=== PATIENT | male | born 1990 | race Caucasian/White ===

== ENCOUNTER 2017-12-14 10:57 | Emergency (ER) | payer MEDICAID, OTHER ==
[~2017-12-14] VITALS: Ht 180.3 cm; Wt 74.8 kg
--- OUTSIDE RECORDS SUMMARY | 2017-12-14 11:03 | XMS REPORT ---
Author Author DEVEN COLLINS Organization [facility] Address [address] [place] [address] Phone Unavailable Care Team Providers Care Insecticide Mixer Name Role Phone DEVEN COLLINS Unavailable Unavailable PROBLEMS Unknown Problems ALLERGIES No Known Allergies ENCOUNTERS Encounter Location Date Diagnosis [facility] [address] [id number] [phone] Mar, Dental examination Z01.20 [facility] [id number] [place] [phone] Mar, Dental examination V72.2 [facility] [address] [id number] [phone] Jan, Dental examination V72.2 [facility] [id number] [place] [phone] Jan, Dental examination V72.2 [facility] [address] [id number] [phone] December, Dental examination V72.2 IMMUNIZATIONS No Known Immunizations SOCIAL HISTORY Never Assessed REASON FOR VISIT prophy PLAN OF CARE Activity Details Follow Up olayinka Reason:restore VITAL SIGNS Blood pressure systolic 123 mmHg 2017-04-02 Blood pressure diastolic 69 mmHg 2017-04-02 MEDICATIONS No Known Medications RESULTS No Results PROCEDURES Procedure Date Ordered Result Body Site PERIODIC ORAL EXAMINATION Apr 02, 2017 INTRAORL-PERIAPICAL 1 FILM [id number] Apr 02, 2017 TOPICAL FLUORIDE VARNISH Apr 02, 2017 INTRAORL-PERIAPICAL EA ADD FILM Apr 02, 2017 INTRAORL-PERIAPICAL EA ADD FILM Apr 02, 2017 PROPHYLAXIS - ADULT Apr 02, 2017 BITEWINGS - FOUR FILMS Apr 02, 2017 INSTRUCTIONS MEDICATIONS ADMINISTERED No Known Medications
--- OUTSIDE RECORDS SUMMARY | 2017-12-14 11:03 | XMS REPORT ---
Author Author SHARLENE ELISE [facility] eClinicalWorks Address Unknown Phone Unavailable Care Team Providers Care Psychiatric Mental Health Nurse Name Role Phone SHARLENE ELISE CP Unavailable Allergies No Known Allergies Problems Problem Type Condition ICD-9 Code Onset Dates Condition Status Assessment Dental examination V72.2 Active Medications No Known Medications Procedures Procedure Coding System Code Date PROPHYLAXIS - ADULT CPT-4 D1110 Apr 06, 2015 TOPICAL FLUORIDE VARNISH CPT-4 D1206 Apr 06, 2015 PERIODIC ORAL EXAMINATION CPT-4 D0120 Apr 06, 2015 Results No Known Results Summary Purpose eClinicalWorks Submission
--- OUTSIDE RECORDS SUMMARY | 2017-12-14 11:03 | XMS REPORT ---
Author Author DAPHNE PEMBERTON [facility] eClinicalWorks Address Unknown Phone Unavailable Care Team Providers Care Public Information Officer Name Role Phone DAPHNE PEMBERTON CP Unavailable Allergies No Known Allergies Problems Problem Type Condition ICD-9 Code Onset Dates Condition Status Assessment Dental examination V72.2 Active Medications No Known Medications Procedures Procedure Coding System Code Date Billing Notes on claim CPT-4 EC109 January 12, 2015 Results No Known Results Summary Purpose eClinicalWorks Submission
[2017-12-14] MEDS ORDERED: fentaNYL INJECTION 100 MCG/2 ML AMP IVP STA (11:15)
[2017-12-14] MEDS ORDERED: LACTATED RINGERS 1,000 ML IV ONE (11:15)
[2017-12-14 11:29] LABS: BASOPHILS % (AUTO) 0 % (0-10); EOSINOPHILS # (AUTO) 0.2 10^3/uL (0.0-0.3); EOSINOPHILS % (AUTO) 3 % (0-10); HEMATOCRIT 42 % (40-54); HEMOGLOBIN 14.4 G/DL (13.3-17.7); LYMPHOCYTES # (AUTO) 1.2 X 10^3 (1.0-4.0); LYMPHOCYTES % (AUTO) 21 % (12-44); MEAN CORPUSCULAR HEMOGLOBIN 30 PG (25-34); MEAN CORPUSCULAR HGB CONC 34 G/DL (32-36); MEAN CORPUSCULAR VOLUME 86 FL (80-99); MEAN PLATELET VOLUME 10.9 FL (7.4-10.4); MONOCYTES # (AUTO) 0.7 X 10^3 (0.0-1.0); MONOCYTES % (AUTO) 11 % (0-12); NEUTROPHILS # (AUTO) 3.9 X 10^3 (1.8-7.8); NEUTROPHILS % (AUTO) 65 % (42-75); PLATELET COUNT 209 10^3/uL (130-400); RED BLOOD COUNT 4.88 10^6/uL (4.35-5.85); RED CELL DISTRIBUTION WIDTH 12.8 % (10.0-14.5)
--- NOTE | 2017-12-14 11:31 | ED Fall/Injury ---
General Chief Complaint: Trauma-Non Activation Stated Complaint: R LEG POSS BROKEN AFTER FALL Nursing Triage Note: PT PRESENTS TO ER WITH COMPLAINT OF RIGHT LEG/ANKLE PAIN AFTER FALLING 4 FEET OFF A LADDER. Source: patient History of Present Illness Date Seen by Provider: Dec 14, 2017 Time Seen by Provider: 11:12 Initial Comments PT ARRIVES VIA POV FROM HOME--WENT TO [facility] FIRST, AND WAS TOLD TO COME HERE--NO CALL FROM THEM. PT FELL APPROXIMATELY 4 FEET OFF A 6" LADDER--WAS OUTSIDE PUTTING UP SIDING, AND LANDED ON GRAVEL LANDED ON RIGHT FOOT, AND IT BUCKLED AND THEN HE LANDED ON HIS BACK DID NOT HIT HEAD AND NO LOSS OF CONSCIOUSNESS NO NECK OR BACK PAIN NO PARESTHESIAS OR MOTOR DEFICITS C/O RIGHT ANKLE/LOWER LEG PAIN DENIES ANY PAIN OR OTHER INJURIES ATE BREAKFAST AT 0900 NO PCP Allergies and Home Medications Allergies Coded Allergies: No Known Drug Allergies (Unverified , 12/14/17) Home Medications Hydrocodone/Acetaminophen 1 Each Tablet, 1 EACH PO Q4H Prescribed by: JEANCARLOS SWAIN on 12/14/17 1230 Ibuprofen 200 Mg Tablet, 200 MG PO PRN PRN for PAIN-MILD, (Reported) Patient Home Medication List Home Medication List Reviewed: Yes Review of Systems Constitutional: no symptoms reported Eyes: No Symptoms Reported Ears, Nose, Mouth, Throat: no symptoms reported Respiratory: no symptoms reported; No short of breath Cardiovascular: no symptoms reported; No chest pain Gastrointestinal: no symptoms reported Genitourinary: no symptoms reported Musculoskeletal: see HPI; No back pain, No neck pain; other (PER HPI) Skin: no symptoms reported Psychiatric/Neurological: No Symptoms Reported Past Sucarou-Luaiyg-Yjkoyj Hx Patient Social History Alcohol Use: Denies Use Recreational Drug Use: Yes Drug of Choice: MARIJUANA Smoking Status: Never a Smoker Recent Foreign Travel: No Contact w/Someone Who Travel: No Recent Infectious Disease Expo: No Recent Hopitalizations: No Immunizations Up To Date PED Vaccines UTD: Yes Seasonal Allergies Seasonal Allergies: No Past Medical History Surgeries: Yes (FINGER FRACTURE/REPAIR) Orthopedic Respiratory: No Cardiac: No Neurological: No Genitourinary: No Gastrointestinal: No Musculoskeletal: Yes (FINGER FRACTURE) Fractures Endocrine: No HEENT: No Cancer: No Psychosocial: No Integumentary: No Blood Disorders: No Physical Exam Vital Signs Vital Signs - First Documented Capillary Refill : Less Than 3 Seconds General Appearance: no apparent distress, thin HEENT: PERRL/EOMI, normal ENT inspection, TMs normal, pharynx normal Neck: non-tender, full range of motion, supple, normal inspection Cardiovascular: normal peripheral pulses, regular rate, rhythm, no JVD, no murmur Respiratory: chest non-tender, normal breath sounds, no respiratory distress, no accessory muscle use Gastrointestinal: normal bowel sounds, non tender, soft Back: normal inspection, no CVA tenderness, no vertebral tenderness Extremities: normal capillary refill, other (DEFORMITY AND SWELLING TO DISTAL TIB-FIB /ANKLE AREA ON RIGHT. DISTAL MOTOR/SENSORY/VASCULAR INTACT. NO OTHER EXTREMITY TRAUMA) Neurologic/Psychiatric: supervisor inspection II-XII nml as tested, no motor/sensory deficits, alert, normal mood/affect, oriented x 3 Skin: normal color, warm/dry Sotero Coma Score Best Eye Response: (4) Open Spontaneously Best Verbal Response: (5) Oriented Best Motor Response: (6) Obeys Commands [place] Total: 15 Procedures/Interventions Splinting and Joint Reduction : Garth wrap: Yes (ALONG WITH STOCKINETTE AND HEAVY CAST PADDING, THEN WRAPPED WITH GARTH WRAP. ) Immobilizers: Step Light Walker s/m/lg Ordered: Crutches Progress/Results/Core Measures Lab Results Laboratory Tests Test 12/14/17 11:20 Range/Units White Blood Count 6.0 4.3-11.0 10^3/uL Red Blood Count 4.88 4.35-5.85 10^6/uL Hemoglobin 14.4 13.3-17.7 G/DL Hematocrit 42 40-54 % Mean Corpuscular Volume 86 80-99 FL Mean Corpuscular Hemoglobin 30 25-34 PG Mean Corpuscular Hemoglobin Concent 34 32-36 G/DL Red Cell Distribution Width 12.8 10.0-14.5 % Platelet Count 209 130-400 10^3/uL Mean Platelet Volume 10.9 H 7.4-10.4 FL Neutrophils (%) (Auto) 65 42-75 % Lymphocytes (%) (Auto) 21 12-44 % Monocytes (%) (Auto) 11 0-12 % Eosinophils (%) (Auto) 3 0-10 % Basophils (%) (Auto) 0 0-10 % Neutrophils # (Auto) 3.9 1.8-7.8 X 10^3 Lymphocytes # (Auto) 1.2 1.0-4.0 X 10^3 Monocytes # (Auto) 0.7 0.0-1.0 X 10^3 Eosinophils # (Auto) 0.2 0.0-0.3 10^3/uL Basophils # (Auto) 0.0 0.0-0.1 10^3/uL Prothrombin Time 14.9 H 12.2-14.7 SEC INR Comment 1.2 0.8-1.4 Activated Partial Thromboplast Time 26 24-35 SEC Sodium Level 139 135-145 MMOL/L Potassium Level 3.9 3.6-5.0 MMOL/L Chloride Level 106 98-107 MMOL/L Carbon Dioxide Level 26 21-32 MMOL/L Anion Gap 7 5-14 MMOL/L Blood Urea Nitrogen 13 7-18 MG/DL Creatinine 0.93 0.60-1.30 MG/DL Estimat Glomerular Filtration Rate > 60 BUN/Creatinine Ratio 14 Glucose Level 95 70-105 MG/DL Calcium Level 9.4 8.5-10.1 MG/DL Total Bilirubin 0.5 0.1-1.0 MG/DL Aspartate Amino Transf (AST/SGOT) 20 5-34 U/L Alanine Aminotransferase (ALT/SGPT) 17 0-55 U/L Alkaline Phosphatase 43 40-136 U/L Total Protein 7.3 6.4-8.2 GM/DL Albumin 4.6 H 3.2-4.5 GM/DL My Orders Orders - JEANCARLOS SWAIN K DO Saline Lock/Iv-Start (12/14/17 11:15) Cbc With Automated Diff (12/14/17 11:15) Comprehensive Metabolic Panel (12/14/17 11:15) Protime With Inr (12/14/17 11:15) Partial Thromboplastin Time (12/14/17 11:15) Chest 1 View, Ap/Pa Only (12/14/17 11:15) Tibia/Fibula, Right, 2 Views (12/14/17 11:15) Foot, Right, 3 View (12/14/17 11:15) Ankle, Right, 3 Views (12/14/17 11:15) Pelvis (12/14/17 11:15) Saline Lock/Iv-Start (12/14/17 11:15) Lactated Ringers (Lr 1000 Ml Iv Solution (12/14/17 11:15) Fentanyl Injection (Sublimaze Injection (12/14/17 11:15) Morphine Injection (Morphine Injection (12/14/17 12:08) Garth Bandage (12/14/17 12:25) Crutches (12/14/17 12:25) Steplite (12/14/17 12:25) Morphine Injection (Morphine Injection (12/14/17 12:25) Morphine Injection (Morphine Injection (12/14/17 13:25) Medications Given in ED Current Medications Medications Dose Ordered Sig/Tyler Route Start Time Stop Time Status Last Admin Dose Admin Lactated Ringer's 1,000 ml @ 0 mls/hr Q0M ONCE IV 12/14/17 11:15 12/14/17 11:17 DC 12/14/17 11:26 1,000 MLS/HR Vital Signs/I&O 12/14/17 12/14/17 12/14/17 11:02 11:02 13:19 Temp 99.0 99.0 Pulse 60 60 62 Resp 20 20 18 B/P (MAP) 130/82 (98) 130/82 (98) 126/75 Pulse Ox 99 99 98 O2 Delivery Room Air Room Air Blood Pressure Mean: 98 Comments XRAYS --ALL PER RADIOLOGIST REPORTS @ 1200 PELVIS--NO ACUTE PROCESS CXR--NO ACUTE PROCESS RIGHT FOOT--NO ACUTE PROCESS RIGHT ANKLE--COMMINUTED SPIRAL FRACTURE DISTAL TIBIA RIGHT TIB-FIB--COMMINUTED FRACTURES OF PROXIMAL FIBULA AND DISTAL TIBIA Reviewed: Reviewed by Me Departure Communication (Admissions) 1150--SPOKE WITH DR. FLYNN, WANTS PICS OF XRAYS TEXTED TO HIM. SOURCER CONTACTED. 1156--XRAYS TEXTED TO HIM BY SOURCER 1216--DR. FLYNN CALLED BACK, HE ADVISES TO PLACE PT IN A CAM WALKER, CRUTCHES /NON-WEIGHT BEARING, FOLLOW UP SATURDAY MORNING AT 10:[address] Sanjuana PLASCENCIA, AND BE NPO. Impression Primary Impression: Closed fracture of right distal tibia Additional Impressions: Closed fracture of proximal end of right fibula S/P FALL FROM LADDER Disposition: 01 HOME, SELF-CARE Condition: Stable Departure-Patient Inst. Referrals: PAU FLYNN MD,GABI JIMENEZ,LOCAL PHYSICIAN (PCP) Primary Care Physician Patient Instructions: Fibula Fracture (DC), Going Up and Down Curbs or Stairs With a Walker or Crutches, How to Use Crutches, Tibia Fracture (DC) Add. Discharge Instructions: ICE TO AREA AT 20 MINUTE INTERVALS ELEVATE FOOT MUCH POSSIBLE GARTH WRAP, BOOT AND CRUTCHES AT ALL TIMES--NO WEIGHT BEARING FOLLOW UP WITH DR. PLASCENCIA AT [address] ON Saturday AT 10:00 AM-- NOTHING TO EAT OR DRINK FROM MIDNIGHT THE NIGHT BEFORE CALL DR. FLYNN OVER THE WEEKEND IF YOU HAVE ANY PROBLEMS All discharge instructions reviewed with patient and/or family. Voiced understanding. Scripts Hydrocodone/Acetaminophen (Hydrocodon-Acetaminophn 10-325) 1 Each Tablet 1 EACH PO Q4H, #20 TAB Prov: JEANCARLOS SWAIN DO 12/14/17 Work/School Note: Work Release Form Date Seen in the Emergency Department: Dec 14, 2017 Restrictions: Need Release from Doctor JEANCARLOS SWAIN DO Dec 14, 2017 11:31
[2017-12-14 11:40] LABS: INR 1.2 (0.8-1.4); PROTHROMBIN TIME PATIENT 14.9 SEC (12.2-14.7)
[2017-12-14] MEDS ORDERED: IBUP-2055 PO (11:40)
[2017-12-14 11:47] LABS: ALANINE AMINOTRANSFERASE 17 U/L (0-55); ALBUMIN 4.6 GM/DL (3.2-4.5); ALKALINE PHOSPHATASE 43 U/L (40-136); BILIRUBIN,TOTAL 0.5 MG/DL (0.1-1.0); BUN/CREATININE RATIO 14; CALCIUM 9.4 MG/DL (8.5-10.1); CARBON DIOXIDE 26 MMOL/L (21-32); CHLORIDE 106 MMOL/L (98-107); CREATININE SERUM 0.93 MG/DL (0.60-1.30); GFR ESTIMATED > 60; GLUCOSE 95 MG/DL (70-105); POTASSIUM 3.9 MMOL/L (3.6-5.0); SODIUM 139 MMOL/L (135-145); TOTAL PROTEIN 7.3 GM/DL (6.4-8.2)
--- NOTE | 2017-12-14 11:52 | Diagnostic Imaging Report ---
INDICATION: Fall COMPARISON: None FINDINGS: Single view of the pelvis demonstrates no fracture or dislocation. Articular surfaces are normal. IMPRESSION: Negative pelvis Dictated by: Dictated on workstation # [id number]
--- NOTE | 2017-12-14 11:54 | Diagnostic Imaging Report ---
INDICATION: Right foot pain COMPARISON: None FINDINGS: 3 views of the right foot demonstrate no fracture or dislocation. Articular surfaces are normal. No foreign body. IMPRESSION: Negative right foot Dictated by: Dictated on workstation # [id number]
--- NOTE | 2017-12-14 11:54 | Diagnostic Imaging Report ---
INDICATION: Right tibia/fibula injury, pain, swelling. COMPARISON: None. FINDINGS: Multiple views of the right tibia/fibula demonstrate a comminuted spiral fracture of the distal tibia. There is minimal displacement. There is a comminuted proximal fracture of the fibula. No significant displacement. Articular surfaces are normal. IMPRESSION: Proximal fibula, distal tibia fractures. Dictated by: Dictated on workstation # [id number]
--- NOTE | 2017-12-14 11:55 | Diagnostic Imaging Report ---
INDICATION: Right ankle injury, fall COMPARISON: None FINDINGS: 3 views of the right ankle demonstrate spiral fracture of the distal tibia. The visualized fibula is intact. Ankle mortise is intact. There is no foreign body. IMPRESSION: Intact ankle mortise. Dictated by: Dictated on workstation # [id number]
--- NOTE | 2017-12-14 11:56 | Diagnostic Imaging Report ---
INDICATION: Fall COMPARISON: None FINDINGS: Single view of the chest demonstrates clear lungs bilaterally. The heart is normal. There is no pneumothorax. Osseous structures normal. IMPRESSION: Negative chest Dictated by: Dictated on workstation # [id number]
[2017-12-14] MEDS ORDERED: morphine INJ 10 MG/ML 1ML (SYR OR VIAL) IVP STA ×3 (12:08→13:25)
[2017-12-14] MEDS ORDERED: HYDR-3820 PO (12:30)
[2017-12-14 13:19] VITALS: BP 126/75
== END 2017-12-14 13:19 | disposition home or self-care (01) ==
LOC: ER 11:00
DX: S82.301A Unspecified fracture of lower end of right tibia, initial encounter for closed fracture (principal); S82.831A Other fracture of upper and lower end of right fibula, initial encounter for closed fracture; R40.2142 Coma scale, eyes open, spontaneous, at arrival to emergency department; R40.2252 Coma scale, best verbal response, oriented, at arrival to emergency department; R40.2362 Coma scale, best motor response, obeys commands, at arrival to emergency department; F12.90 Cannabis use, unspecified, uncomplicated; Z87.81 Personal history of (healed) traumatic fracture; W11.XXXA Fall on and from ladder, initial encounter
CPT/HCPCS: 36415; 71045; 72170; 73590; 73610; 73630; 80053; 85025; 85610; 85730; 96361; 96374; 96375

== ENCOUNTER 2019-04-27 08:08 | Inpatient (IN) | payer MEDICAID ==
[~2019-04-27] VITALS: Ht 177.8 cm; Wt 71.8 kg
[~2019-04-27 08:08] MED LIST: HYDR-3820 PO; IBUP-2055 PO
[2019-04-27] MEDS ORDERED: HYDROcodone/APAP 10 MG/325 MG (LORTAB) TAB PO ONE (08:45)
[2019-04-27] MEDS ORDERED: morphine INJ 10 MG/ML 1ML (SYR OR VIAL) IVP STA (08:59)
[2019-04-27] MEDS ORDERED: NS IV 1000 ML 1,000 ML IV SCH (09:00)
[2019-04-27] MEDS ORDERED: KETOROLAC 30 MG/ML VIAL IVP ONE (09:00)
[2019-04-27] MEDS ORDERED: ONDANSETRON 4 MG/2 ML (SDV) Z0FRAN IVP ONE (09:00)
[2019-04-27 09:21] LABS: HEMATOCRIT 42 % (40-54); HEMOGLOBIN 14.3 G/DL (13.3-17.7); MEAN CORPUSCULAR HEMOGLOBIN 30 PG (25-34); MEAN CORPUSCULAR HGB CONC 34 G/DL (32-36); MEAN CORPUSCULAR VOLUME 89 FL (80-99); MEAN PLATELET VOLUME 11.5 FL (7.4-10.4); PLATELET COUNT 170 10^3/uL (130-400); RED CELL DISTRIBUTION WIDTH 12.3 % (10.0-14.5); WHITE BLOOD COUNT 5.1 10^3/uL (4.3-11.0)
[2019-04-27 09:22] LABS: BASOPHILS % (AUTO) 0 % (0-10); EOSINOPHILS # (AUTO) 0.1 10^3/uL (0.0-0.3); EOSINOPHILS % (AUTO) 1 % (0-10); LYMPHOCYTES % (AUTO) 20 % (12-44); MONOCYTES # (AUTO) 0.6 X 10^3 (0.0-1.0); MONOCYTES % (AUTO) 13 % (0-12); NEUTROPHILS # (AUTO) 3.3 X 10^3 (1.8-7.8); NEUTROPHILS % (AUTO) 66 % (42-75)
--- NOTE | 2019-04-27 09:25 | NUR ---
Informed consent obtained after review of procedure discussed by Dr Bell. BERNIE FIELDS infusing wide open.
--- NOTE | 2019-04-27 09:39 | NUR ---
Temp at this time 36.7 (98.0).
[2019-04-27 09:45] LABS: ALKALINE PHOSPHATASE 47 U/L (40-136); BILIRUBIN,TOTAL 0.3 MG/DL (0.1-1.0); BUN/CREATININE RATIO 12; CALCIUM 9.2 MG/DL (8.5-10.1); CARBON DIOXIDE 27 MMOL/L (21-32); CHLORIDE 101 MMOL/L (98-107); CREATININE SERUM 1.02 MG/DL (0.60-1.30); GFR ESTIMATED > 60; GLUCOSE 95 MG/DL (70-105); POTASSIUM 4.7 MMOL/L (3.6-5.0); SODIUM 140 MMOL/L (135-145)
--- NOTE | 2019-04-27 09:45 | NUR ---
Dr Bell present in room. Time out performed: correct patient, correct site, correct procedure consented, correct supplies for procedure. All questions answered. is present. IV NS has infused.
[2019-04-27 09:46] LABS: ALANINE AMINOTRANSFERASE 17 U/L (0-55); ALBUMIN 4.1 GM/DL (3.2-4.5); TOTAL PROTEIN 6.8 GM/DL (6.4-8.2)
--- NOTE | 2019-04-27 09:50 | NUR ---
Patient prepped and prepared for Adult Lumbar puncture.
[2019-04-27 10:00] LABS: BAND NEUTROPHILS 10 %; BASOPHILS % (MANUAL) 0 %; EOSINOPHILS % (MANUAL) 0 %; LYMPHOCYTES % (MANUAL) 19 %; METAMYELOCYTES % 2 %; MONOCYTES % (MANUAL) 11 %; NEUTROPHILS % (MANUAL) 57 %
--- NOTE | 2019-04-27 10:00 | NUR ---
Lumbar puncture completed by Dr Bell.
[2019-04-27 10:01] LABS: BLAST CELLS 1 %
--- NOTE | 2019-04-27 10:05 | NUR ---
Florentino from Lab contacted and came to receive lab specimens labeled 1-4 and couriered to [place] [facility] for stat testing.
--- NOTE | 2019-04-27 10:58 | NUR ---
Call to [place] [facility] and spoke with Erica in Micro then she spoke with Rowena. The spinal fluid has been rec'd but not that long ago via embedded software architect and will proceed as STAT run as patient is waiting.
--- NOTE | 2019-04-27 11:01 | ED General ---
General Chief Complaint: General Problems/Pain Stated Complaint: HEADACHE; BOWEL CONSTIPATION; FEVER Nursing Triage Note: Pt presents to ED per POV with significant other giving detailed hx. Pt having "cold sweats" Wed with suspected fever as a child also had. became constipated and Saturday developed headache that worsened today. Pt used Miralax last night with small BM. No temperatures have been taken. Nursing Sepsis Screen: No Definite Risk Source of Information: Patient Exam Limitations: No Limitations History of Present Illness Date Seen by Provider: Apr 27, 2019 Time Seen by Provider: 08:45 Initial Comments Patient is a 28-year-old male who presents with multiple medical complaints. Reports dull headache, subjective fever, sweats, neck pain, stiffness, fatigue and constipation. States symptoms began approximately 3 days ago. No measured temperature.Patient Did take ibuprofen prior to coming to the ED this morning. Denies rash, sore throat, back pain extremity weakness or loss of sensation. No other acute symptoms or complaints. Timing/Duration: 2-3 Days Severity: Moderate Modifying Factors: improves with Medication Associated Systoms: Diaphoresis, Fever/Chills, Headaches Allergies and Home Medications Allergies Coded Allergies: No Known Drug Allergies (Unverified , 12/14/17) Home Medications No Active Prescriptions or Reported Meds Patient Home Medication List Home Medication List Reviewed: Yes Review of Systems Review of Systems Constitutional: see HPI EENTM: see HPI Respiratory: see HPI Cardiovascular: see HPI Gastrointestinal: see HPI Genitourinary: no symptoms reported Musculoskeletal: see HPI Skin: no symptoms reported Psychiatric/Neurological: No Symptoms Reported Hematologic/Lymphatic: No Symptoms Reported Immunological/Allergic: no symptoms reported Past Uqtmtlz-Eoxplo-Blzfto Hx Past Med/Social Hx: Reviewed Nursing Past Med/Soc Hx Patient Social History Alcohol Use: Occasionally Uses Number of Drinks Today: 0 Recreational Drug Use: No (Past Hx) Drug of Choice: MARIJUANA Smoking Status: Never a Smoker Recent Foreign Travel: No Contact w/Someone Who Travel: No Recent Infectious Disease Expo: No Recent Hopitalizations: No Physical Abuse: No Sexual Abuse: No Mistreated: No Fear: No Immunizations Up To Date PED Vaccines UTD: Yes Seasonal Allergies Seasonal Allergies: No Past Medical History Surgeries: Yes (R 5TH FINGER FRACTURE RECONSTRUCTION/FX R LEG HAS LILLIANA, WISDOM TEETH) Orthopedic Respiratory: No Cardiac: No Neurological: No Genitourinary: No Gastrointestinal: No Musculoskeletal: Yes (FINGER FRACTURE, LEG FX) Fractures Endocrine: No HEENT: No Cancer: No Psychosocial: No Integumentary: No Blood Disorders: No Physical Exam Vital Signs Vital Signs - First Documented 04/27/19 08:15 Temp 37.2 Pulse 80 Resp 16 B/P (MAP) 139/76 Pulse Ox 98 O2 Delivery Room Air Capillary Refill : Less Than 3 Seconds Height, Weight, BMI Height: 5'11.00" Weight: 165lbs. oz. 74.274413aj; 23.00 BMI Method:Stated General Appearance: No Apparent Distress, WD/WN Eyes: Bilateral Eye PERRL, Bilateral Eye EOMI, Bilateral Eye Other (conjunctiva injected) HEENT: PERRL/EOMI, TMs Normal, Pharynx Normal Neck: Non Tender, Supple, Other Respiratory: Chest Non Tender, Lungs Clear, Normal Breath Sounds Cardiovascular: Regular Rate, Rhythm Back: Normal Inspection, No CVA Tenderness Neurologic/Psychiatric: Alert, Oriented x3, No Motor/Sensory Deficits, Normal Mood/Affect Skin: Normal Color, Damp; No Rash Focused Exam Sepsis Stage: Ruled Out Procedures/Interventions Discussed Risk,Benefits: Yes Patient Consents: Yes Position: L3-4, Sitting Sterile Technique: Yes Fluid Color: clear, 4 mls of CSF obtained on first attempt without difficulty Size of Disposal Tray Used: Adult Progress/Results/Core Measures Suspected Sepsis Recent Fever Within 48 Hours: Yes Infection Criteria Present: Suspected New Infection New/Unexplained Altered Menta: No Sepsis Screen: No Definite Risk SIRS Temperature:98.4 Pulse: 80 Respiratory Rate: 16 Laboratory Tests 04/27/19 09:05: White Blood Count 5.1 Blood Pressure 139 /76 Mean: 97 Laboratory Tests 04/27/19 09:05: Creatinine 1.02, Platelet Count 170, Total Bilirubin 0.3 Results/Orders Lab Results Laboratory Tests Test 04/27/19 09:05 04/27/19 10:00 04/27/19 11:37 Range/Units White Blood Count 5.1 4.3-11.0 10^3/uL Red Blood Count 4.73 4.35-5.85 10^6/uL Hemoglobin 14.3 13.3-17.7 G/DL Hematocrit 42 40-54 % Mean Corpuscular Volume 89 80-99 FL Mean Corpuscular Hemoglobin 30 25-34 PG Mean Corpuscular Hemoglobin Concent 34 32-36 G/DL Red Cell Distribution Width 12.3 10.0-14.5 % Platelet Count 170 130-400 10^3/uL Mean Platelet Volume 11.5 H 7.4-10.4 FL Neutrophils (%) (Auto) 66 42-75 % Lymphocytes (%) (Auto) 20 12-44 % Monocytes (%) (Auto) 13 H 0-12 % Eosinophils (%) (Auto) 1 0-10 % Basophils (%) (Auto) 0 0-10 % Neutrophils # (Auto) 3.3 1.8-7.8 X 10^3 Lymphocytes # (Auto) 1.0 1.0-4.0 X 10^3 Monocytes # (Auto) 0.6 0.0-1.0 X 10^3 Eosinophils # (Auto) 0.1 0.0-0.3 10^3/uL Basophils # (Auto) 0.0 0.0-0.1 10^3/uL Neutrophils % (Manual) 57 % Lymphocytes % (Manual) 19 % Monocytes % (Manual) 11 % Eosinophils % (Manual) 0 % Basophils % (Manual) 0 % Metamyelocytes % 2 % Band Neutrophils 10 % Blast Cells 1 % D-Dimer 0.23 0.00-0.49 UG/ML Sodium Level 140 135-145 MMOL/L Potassium Level 4.7 3.6-5.0 MMOL/L Chloride Level 101 98-107 MMOL/L Carbon Dioxide Level 27 21-32 MMOL/L Anion Gap 12 5-14 MMOL/L Blood Urea Nitrogen 12 7-18 MG/DL Creatinine 1.02 0.60-1.30 MG/DL Estimat Glomerular Filtration Rate > 60 BUN/Creatinine Ratio 12 Glucose Level 95 70-105 MG/DL Calcium Level 9.2 8.5-10.1 MG/DL Corrected Calcium 9.1 8.5-10.1 MG/DL Total Bilirubin 0.3 0.1-1.0 MG/DL Aspartate Amino Transf (AST/SGOT) 25 5-34 U/L Alanine Aminotransferase (ALT/SGPT) 17 0-55 U/L Alkaline Phosphatase 47 40-136 U/L Total Protein 6.8 6.4-8.2 GM/DL Albumin 4.1 3.2-4.5 GM/DL Monoscreen NEGATIVE NEGATIVE CSF Tube Number 4 CSF Appearance CLEAR CSF Color COLORLESS CSF WBC 41 H 0-5 CELLS CSF RBC 3 H 0-0 CELLS CSF Lymphocytes 11 % CSF Mononuclear WBCs 70 % CSF Polynuclear WBCs 19 % CSF Glucose 52 50-80 MG/DL CSF Total Protein 52 H 15-40 MG/DL Urine Color YELLOW Urine Clarity CLEAR Urine pH 7.0 5-9 Urine Specific [place] 1.015 L 1.016-1.022 Urine Protein NEGATIVE NEGATIVE Urine Glucose (UA) NEGATIVE NEGATIVE Urine Ketones NEGATIVE NEGATIVE Urine Nitrite NEGATIVE NEGATIVE Urine Bilirubin NEGATIVE NEGATIVE Urine Urobilinogen 0.2 NORMAL MG/DL Urine Leukocyte Esterase NEGATIVE NEGATIVE Urine RBC (Auto) NEGATIVE NEGATIVE Urine RBC NONE /HPF Urine WBC RARE /HPF Urine Squamous Epithelial Cells 0-2 /HPF Urine Crystals NONE /LPF Urine Bacteria NONE /HPF Urine Casts NONE /LPF Urine Mucus NEGATIVE /LPF Urine Culture Indicated NO Micro Results Microbiology 04/27/19 Gram Stain - Final, Resulted 04/27/19 CSF Culture, Resulted Pending My Orders Orders - PAUL BROWN DO Hydrocodone/Apap 10/325 Tablet (Lortab 1 (04/27/19 08:45) Cbc With Automated Diff (04/27/19 08:59) Comprehensive Metabolic Panel (04/27/19 08:59) Ua Culture If Indicated (04/27/19 08:59) Blood Culture (04/27/19 08:59) Morphine Injection (Morphine Injection (04/27/19 08:59) Ondansetron Injection (Zofran Injectio (04/27/19 09:00) Ns Iv 1000 Ml (Sodium Chloride 0.9%) (04/27/19 09:00) Ketorolac Injection (Toradol Injection) (04/27/19 09:00) Consent-Obtain Consent For (04/27/19 08:59) Csf Cell Count (04/27/19 08:59) Csf Culture (04/27/19 08:59) Enterovirus Pcr (Csf Or Plasma (04/27/19 08:59) Csf Glucose (04/27/19 08:59) Csf Total Protein (04/27/19 08:59) Blood Culture (04/27/19 09:16) Manual Differential (04/27/19 09:05) Fibrin Degradation Products (04/27/19 11:35) Dexamethasone Injection (Decadron Inject (04/27/19 13:00) Blood Culture (04/27/19 12:57) Acyclovir 800 Mg Ivpb (Q 8 Hr) (04/27/19 14:00) Monotest (04/27/19 13:01) Ceftriaxone For Iv Use (Rocephin For I (04/27/19 14:00) Vancomycin Injection (Vancomycin Injecti (04/27/19 14:00) Ciprofloxacin Tablet (Cipro Tablet) (04/27/19 13:52) Vancomycin Injection (Vancomycin Injecti (04/27/19 13:53) Ns (Ivpb) (Sodium Chloride 0.9%) (04/27/19 13:53) Medications Given in ED Current Medications Medications Dose Ordered Sig/Tyler Route Start Time Stop Time Status Last Admin Dose Admin Acetaminophen/ Hydrocodone Bitart 1 ea ONCE ONCE PO 04/27/19 08:45 04/27/19 08:46 DC 04/27/19 08:49 1 EA Dexamethasone Sodium Phosphate 10 mg ONCE ONCE IV 04/27/19 13:00 04/27/19 13:01 DC 04/27/19 13:48 10 MG Ketorolac Tromethamine 30 mg ONCE ONCE IVP 04/27/19 09:00 04/27/19 09:05 DC 04/27/19 09:16 30 MG Ondansetron HCl 4 mg ONCE ONCE IVP 04/27/19 09:00 04/27/19 09:05 DC 04/27/19 09:17 4 MG Vital Signs/I&O 04/27/19 04/27/19 04/27/19 04/27/19 08:15 08:49 09:16 09:16 Temp 37.2 37.2 37.2 36.41824 Pulse 80 Resp 16 B/P (MAP) 139/76 Pulse Ox 98 O2 Delivery Room Air Capillary Refill : Less Than 3 Seconds Blood Pressure Mean: 97 Departure Communication (Admissions) Time/Spoke to Admitting Phy: 13:45 Felipe Gardiner agrees to admit the patient. Lumbar puncture suggestive of meningitis. Empiric abx and steroids given. Dr. Gardiner to admit. Impression Primary Impression: Meningitis Disposition: 01 HOME, SELF-CARE Condition: Stable Admissions Decision to Admit Reason: Admit from ER (General) Decision to Admit/Date: Apr 27, 2019 Time/Decision to Admit Time: 13:00 Transfer Time Spoke to Accepting Phy: 13:45 Method of Transfer: EMS Departure-Patient Inst. Referrals: ANNA SNYDER MD (PCP/Family) Primary Care Physician Scripts No Active Prescriptions or Reported Meds PAUL BROWN DO Apr 27, 2019 11:01
--- NOTE | 2019-04-27 11:05 | NUR ---
Updated patient and . Pt is resting with eyes closed.
[2019-04-27 11:15] LABS: CSF GLUCOSE 52 MG/DL (50-80); CSF TOTAL PROTEIN 52 MG/DL (15-40)
[2019-04-27 11:21] LABS: APPEARANCE,CSF CLEAR; COLOR,CSF COLORLESS; CSF TUBE NUMBER 4; RED BLOOD CELL,CSF 3 CELLS (0-0); WHITE BLOOD CELL,CSF 41 CELLS (0-5)
[2019-04-27 11:45] LABS: LYMPHOCYTES,CSF 11 %
[2019-04-27 11:56] LABS: BILIRUBIN,URINE NEGATIVE (NEGATIVE); CLARITY,URINE CLEAR; COLOR,URINE YELLOW; GLUCOSE, URINE (UA) NEGATIVE (NEGATIVE); KETONES,URINE NEGATIVE (NEGATIVE); LEUKOCYTE ESTERASE ,URINE NEGATIVE (NEGATIVE); NITRITE,URINE NEGATIVE (NEGATIVE); PROTEIN,URINE NEGATIVE (NEGATIVE); SQUAMOUS EPITHELIAL CELL,UR 0-2 /HPF; UROBILINOGEN,URINE 0.2 MG/DL (NORMAL); WBC,URINE RARE /HPF
--- NOTE | 2019-04-27 12:45 | NUR ---
ROCKY white, reported the CSF results to Dr Bell.
--- NOTE | 2019-04-27 12:58 | NUR ---
Permission granted to give water. Apologies for delays to patient and family. has had other emergencies arise. will come talk to them shortly.
[2019-04-27] MEDS ORDERED: DEXAMETHASONE 4 MG/ML SDV (DECADRON) IV ONE (13:00)
[2019-04-27] MEDS ORDERED: CIPROFLOXACIN 500 MG (CIPRO) TABLET PO ONE (13:52)
[2019-04-27] MEDS ORDERED: VANCOMYCIN 1000 MG/VIAL ONE (13:53)
[2019-04-27] MEDS ORDERED: NS (IVPB) 250 ML ONE (13:53)
[2019-04-27] MEDS ORDERED: cefTRIAXone FOR IV USE 2,000 MG in WATER (STERILE) FOR INJECTION 20 ML IV SCH (14:00)
[2019-04-27] MEDS ORDERED: ACYCLOVIR INJECTION 800 MG in NS (IVPB) 250 ML IV ONE (14:00)
[2019-04-27] MEDS ORDERED: VANCOMYCIN INJECTION 1,000 MG in NS (IVPB) 250 ML IV SCH (14:00)
--- NOTE | 2019-04-27 16:30 | NUR ---
f pt name] admitted to room 413-1, with an admitting diagnosis of MEMINGITIS, on 04/27/19 from [facility] via AMBULANCE, accompanied by STAFF.MICHAEL DOMINGUEZ introduced to surroundings, call light, bed controls, phone, TV, temperature control, lights, meal times, smoking policy, visitor policy, side rail policy, bathrooms and showers. Patient Rights given to patient in the handbook.MICHAEL DOMINGUEZ verbalizes understanding that [facility] is not responsible for the loss or damage to any personal effects or valuables that are kept in the patients posession during their hospitalization. The following Patient Care Plans were discussed with the : Discharge Planning, PAIN CONTROL,IV THERPY, and PAIN CONTROL. MICHAEL DOMINGUEZ verbalizes understanding of Interdisciplinary Patient Education. Patient and/or family were informed about the Rapid Response Team and its purpose.
[2019-04-27 16:40] VITALS: BP 129/66
[2019-04-27] MEDS ORDERED: morphine INJ 4 MG/ML 1 ML (VIAL/SYRINGE) ONE (16:43)
[2019-04-27] MEDS ORDERED: ONDANSETRON 4 MG/2 ML (SDV) Z0FRAN IV PRN ×2 (17:00→17:15)
[2019-04-27] MEDS ORDERED: morphine INJ 4 MG/ML 1 ML (VIAL/SYRINGE) IV PRN (17:00)
[2019-04-27] MEDS ORDERED: ACYCLOVIR INJECTION 800 MG in NS (IVPB) 250 ML IV NR (17:01)
--- NOTE | 2019-04-27 17:08 | History & Physical-Hospitalist ---
History of Present Illness HPI/Chief Complaint Pt is a 28yoCM with no known past medical history who presented to the ER with complaints of severe headache. He states that he just flew back from [place] yesterday and developed a headache when he got home. He took some ibuprofen but did not improve. He awoke this morning with a severe headache as well and a fever. He took 800mg of ibuprofen without any relief prompting his to bring him to the ER for evaluation. On arrival he was found to have neck stiffness and LP was done which was consistent with viral meningitis. He denies any sick contacts, cough, congestion, chest pain. Source: patient Date Seen 04/27/19 Time Seen by a Provider: 16:10 Attending Physician Zoila Gardiner MD PCP Chalo Stringer MD Referring Physician Date of Admission Apr 27, 2019 at 2:49 pm Home Medications & Allergies Home Medications Reviewed patient Home Medication Reconciliation performed by pharmacy medication reconciliations avionics test technician and/or nursing. Patients Allergies have been reviewed. Allergies Allergies Coded Allergies No Known Drug Allergies (Unverified12/14/17) Past Xrcoikc-Cjzdwz-Ttdfws Hx Past Med/Social Hx: Reviewed Nursing Past Med/Soc Hx Patient Social History Alcohol Use: Occasionally Uses Number of Drinks Today: 0 Recreational Drug Use: No Drug of Choice: MARIJUANA Smoking Status: Never a Smoker Physical Abuse Screen: No Sexual Abuse: No Recent Foreign Travel: No Contact w/other who traveled: No Recent Hopitalizations: No Recent Infectious Disease Expo: No Immunizations Up To Date Pediatric: Yes Seasonal Allergies Seasonal Allergies: No Past Medical History Surgeries: Orthopedic Musculoskeletal: Fractures History of Blood Disorders: No Family History Reviewed Nursing Family Hx Diabetes mellitus PA GRANDFATHER No Pertinent Family Hx Review of Systems Constitutional: chills, diaphoresis, fever EENTM: No hearing loss, No blurred vision, No double vision Respiratory: No cough, No short of breath Cardiovascular: No chest pain Physical Exam Physical Exam Vital Signs Vital Signs - First Documented 04/27/19 08:15 Temp 37.2 Pulse 80 Resp 16 B/P (MAP) 139/76 Pulse Ox 98 O2 Delivery Room Air Capillary Refill : Less Than 3 Seconds Height, Weight, BMI Height: 5'10.00" Weight: 158lbs. 6.0oz. 71.261906wk; 22.7 BMI Method:Stated General Appearance: No Apparent Distress, WD/WN HEENT: Moist Mucous Membranes; No Scleral Icterus (L), No Scleral Icterus (R) Respiratory: Lungs Clear, No Respiratory Distress Cardiovascular: Regular Rate, Rhythm, No Murmur Gastrointestinal: Normal Bowel Sounds, Non Tender, Soft Extremity: No Calf Tenderness, No Pedal Edema Neurologic/Psychiatric: Alert, Oriented x3, Normal Mood/Affect Results Results/Procedures Labs Laboratory Tests 04/27/19 09:05 Patient resulted labs reviewed. Imaging: Reviewed Imaging Report Assessment/Plan Admission Diagnosis Viral Meningitis Admission Status: Inpatient Order (span 2 midnights) Reason for Inpatient Admission: see below Assessment and Plan Viral Meningitis Likely viral given cell count and clinical appearance Await cultures Continue on empiric antibiotics Tylenol and Ibuprofen prn pain Diagnosis/Problems Diagnosis/Problems (1) Viral meningitis Status: Acute ZOILA GARDINER MD Apr 27, 2019 17:08
[2019-04-27] MEDS ORDERED: MELATONIN 3 MG TABLET PO PRN (17:15)
[2019-04-27] MEDS ORDERED: ANTACID SUSP 30 ML UDC (MYLANTA) PO PRN (17:15)
[2019-04-27] MEDS ORDERED: MILK OF MAGNESIA 400 MG/5 ML 30 ML UDC PO PRN (17:15)
[2019-04-27] MEDS ORDERED: CATHETER FLUSH 10 ML SYR IV PRN (17:15)
[2019-04-27] MEDS ORDERED: ACETAMINOPHEN 325 MG TABLET PO PRN (17:15)
[2019-04-27] MEDS ORDERED: BENZONATATE 100 MG (TESSALON) CAPSULE PO PRN (17:15)
[2019-04-27] MEDS ORDERED: IBUPROFEN TABLET 200 MG TAB PO PRN (17:15)
[2019-04-27] MEDS ORDERED: BISACODYL 10 MG SUPP (DULCOLAX) PR PRN (19:15)
[2019-04-27] MEDS ORDERED: FLEET ENEMA ADULT 1 EA BTL PR PRN (19:15)
[2019-04-27] MEDS ORDERED: VANCOMYCIN INJECTION 0.1 MG in NS (IVPB) 250 ML IV SCH (19:15)
--- NOTE | 2019-04-27 19:17 | NUR ---
CR 1.02; CR CL > 80; WT 71.8 KG; VANCO 1 GM GIVEN IN [place]; CONTINUE WITH VANCO 1 GM IV Q8H; TROUGH AFTER 3RD DOSE
[2019-04-27 19:57] VITALS: BP 141/66
[2019-04-27] MEDS: SENNA W/DOCUSATE (SENOKOT S) TABLET PO PRN ×2 (20:32→22:00)
[2019-04-27] MEDS: CATHETER FLUSH 10 ML SYR IV SCH (22:00)
[2019-04-27] MEDS: VANCOMYCIN 1 GM/NS 250 ML IVPB IV SCH ×2 (23:00)
[2019-04-28] VITALS: BP 132/72
[2019-04-28] MEDS: ACYCLOVIR INJECTION 800 MG in NS (IVPB) 250 ML IV SCH ×2 (01:55→08:51)
[2019-04-28] MEDS: cefTRIAXone FOR IV USE 2,000 MG in WATER (STERILE) FOR INJECTION 20 ML IV SCH ×2 (02:00→08:43)
[2019-04-28 04:00] VITALS: BP 99/54
[2019-04-28] MEDS: VANCOMYCIN 1 GM/NS 250 ML IVPB IV SCH ×2 (05:39)
[2019-04-28] MEDS: CATHETER FLUSH 10 ML SYR IV SCH ×2 (05:39→16:01)
[2019-04-28 06:00] LABS: BASOPHILS % (AUTO) 0 % (0-10); EOSINOPHILS % (AUTO) 0 % (0-10); HEMATOCRIT 37 % (40-54); HEMOGLOBIN 12.5 G/DL (13.3-17.7); LYMPHOCYTES # (AUTO) 0.9 X 10^3 (1.0-4.0); LYMPHOCYTES % (AUTO) 10 % (12-44); MEAN CORPUSCULAR HEMOGLOBIN 30 PG (25-34); MEAN CORPUSCULAR HGB CONC 34 G/DL (32-36); MEAN CORPUSCULAR VOLUME 87 FL (80-99); MEAN PLATELET VOLUME 11.4 FL (7.4-10.4); MONOCYTES # (AUTO) 1.3 X 10^3 (0.0-1.0); MONOCYTES % (AUTO) 14 % (0-12); NEUTROPHILS # (AUTO) 7.1 X 10^3 (1.8-7.8); NEUTROPHILS % (AUTO) 77 % (42-75); PLATELET COUNT 181 10^3/uL (130-400); RED CELL DISTRIBUTION WIDTH 12.2 % (10.0-14.5); WHITE BLOOD COUNT 9.3 10^3/uL (4.3-11.0)
[2019-04-28 06:12] LABS: BUN/CREATININE RATIO 13; CALCIUM 8.4 MG/DL (8.5-10.1); CARBON DIOXIDE 23 MMOL/L (21-32); CHLORIDE 105 MMOL/L (98-107); CREATININE SERUM 0.75 MG/DL (0.60-1.30); GFR ESTIMATED > 60; GLUCOSE 116 MG/DL (70-105); POTASSIUM 4.3 MMOL/L (3.6-5.0); SODIUM 137 MMOL/L (135-145)
[2019-04-28 08:00] VITALS: BP 116/63
[2019-04-28 12:00] VITALS: BP 128/69
--- NOTE | 2019-04-28 12:31 | Discharge Inst-Simple/Standard ---
Discharge Inst-Standard Reconcile Patient Problems Problems Reviewed?: Yes Patient Instructions/Follow Up Plan of Care/Instructions/FU: Please continue to take your medications as written. Please follow up with your PCP in the next week to follow up with this hospital stay. Activity as Tolerated: Yes Discharge Diet: No Restrictions Return to The Hospital For: Fever, headaches, confusion, if you feel you are getting worse. ZOILA VAN MD Apr 28, 2019 12:31
[2019-04-28] MEDS ORDERED: TROUGH ORDER-PHARMACY XX NR (14:00)
[2019-04-28] MEDS ORDERED: VANCOMYCIN INJECTION 1,500 MG in NS IV 500 ML 500 ML IV SCH (15:00)
--- NOTE | 2019-04-28 15:00 | NUR ---
VANCOMYCIN DOSING TROUGH LEVEL 8.7 ON VANC 1 GM Q8H - WILL INCREASE DOSE TO VANC 1500 MG Q8H CHECK TROUGH LEVEL 04/29 AT 1400 - HOLD DOSE AND CONTACT PHARMACY IF LEVEL IS GREATER THAN 20 OR LESS THAN 10 FROM CLIN-CALC VANCOMYCIN CALCULATOR EXPECTED PK: Peak 38.7 mcg/mL Trough 14.6 mcg/mL (goal 15-20 mcg/mL) AUC:CHERYL 602 mcg*hr/mL
[2019-04-28 15:43] VITALS: BP 137/70
--- NOTE | 2019-04-28 16:21 | Discharge Summary ---
Discharge Summary Hospital Course Was the Problem List Reviewed?: Yes Problems/Dx: (1) Viral meningitis Status: Acute Hospital Course Date of Admission: Apr 27, 2019 at 14:49 Admission Diagnosis : Family Physician/Provider: Anna Stringer MD Date of Discharge: 04/28/19 Discharge Diagnosis: [ Viral Meningitis] Hospital Course: [ Pt was admitted due to severe headache, fever, and nuchal rigidity concerning for meningitis. He had an LP done in the ER consistent with viral meningitis. He received Rocephin, Vancomycin,and Acyclovir while cultures were pending. His symptoms improved and he had no further headache. His CSF cultures came back negative at 24 hours. He was offered an additional day of addition to make sure cultures remained negative but he elected to discharge home. Strict return precautions were given. He is to follow up with his PCP in the next week to follow up this hospital stay. ] Labs and Pending Lab Test: Laboratory Tests 04/28/19 05:43: White Blood Count 9.3, Red Blood Count 4.23L, Hemoglobin 12.5L, Hematocrit 37L, Mean Corpuscular Volume 87, Mean Corpuscular Hemoglobin 30, Mean Corpuscular Hem oglobin Concent 34, Red Cell Distribution Width 12.2, Platelet Count 181, Mean Platelet Volume 11.4H, Neutrophils (%) (Auto) 77H, Lymphocytes (%) (Auto) 10L, Monocytes (%) (Auto) 14H, Eosinophils (%) (Auto) 0, Basophils (%) (Auto) 0, Neutrophils # (Auto) 7.1, Lymphocytes # (Auto) 0.9L, Monocytes # (Auto) 1.3H, Eosinophils # (Auto) 0.0, Basophils # (Auto) 0.0, Sodium Level 137, Potassium Level 4.3, Chloride Level 105, Carbon Dioxide Level 23, Anion Gap 9, Blood Urea Nitrogen 10, Creatinine 0.75, Estimat Glomerular Filtration Rate > 60, BUN/Creatinine Ratio 13, Glucose Level 116H, Calcium Level 8.4L 04/28/19 14:00: Vancomycin Level Trough 8.7L Microbiology 04/27/19 Blood Culture - Preliminary, Resulted No growth 04/27/19 Gram Stain - Final, Resulted 04/27/19 CSF Culture - Preliminary, Resulted No growth Home Meds Active No Active Prescriptions or Reported Medications Assessment/Pt Instructions Viral Meningitis Discharge Instructions Discharge Diet: No Restrictions Activity as Tolerated: Yes Discharge Physical Examination Vital Signs Vital Signs Date Time Temp Pulse Resp B/P (MAP) Pulse Ox O2 Delivery O2 Flow Rate FiO2 04/28/19 15:43 37.1 65 20 137/70 99 Room Air General Appearance: No Apparent Distress, WD/WN Cardiovascular: Regular Rate, Rhythm, No Murmur Neurologic/Psychiatric: Alert, Oriented x3 Allergies: Coded Allergies: No Known Drug Allergies (Unverified , 12/14/17) Copy Copies To 1: ANNA STRINGER MD Discharge Summary Date of Admission Apr 27, 2019 at 14:49 Date of Discharge Discharge Date: Apr 28, 2019 Admission Diagnosis Viral Meningitis Discharge Diagnosis Viral Meningitis Likely viral given cell count and clinical appearance Await cultures Continue on empiric antibiotics Tylenol and Ibuprofen prn pain (1) Viral meningitis Status: Acute Clinical Quality Measures DVT/VTE Risk/Contraindication: Risk Factor Score Per Nursin RFS Level Per Nursing on Admit: 1=Low/No VTE PPX ZOILA VAN MD Apr 28, 2019 16:20
== END 2019-04-28 17:30 | disposition home or self-care (01) | DRG 76 ==
LOC: EDUNIT# 08:08 → ER FS 08:09 → 4TH 14:49
PROVIDERS: ADMIT Family Medicine; ATTEND Family Medicine
PROC: 009U3ZX Drainage of Spinal Canal, Percutaneous Approach, Diagnostic (ICD-10-PCS; principal; 2019-04-27)
DX: A87.9 Viral meningitis, unspecified (principal)
CPT/HCPCS: 36415; 62270; 80048; 80053; 80202; 81000; 82945; 84157; 85007; 85025; 85027; 85379; 86308; 87040; 87070; 87205; 87498; 88112; 89051; 96374; 96375

== ENCOUNTER 2021-03-13 19:03 | Emergency (ER) | payer MEDICAID ==
[~2021-03-13] VITALS: Ht 177.8 cm; Wt 79.7 kg
[~2021-03-13 19:03] MED LIST changes: +ACHYD1T PO; -HYDR-3820 PO; -IBUP-2055 PO; +IBUP-2473 PO
[2021-03-13 19:20] VITALS: BP 132/93
[2021-03-13] MEDS ORDERED: AMOXICILLIN 500 MG (POLYMOX) CAP PO STA (20:03)
[2021-03-13] MEDS ORDERED: ACHD5005 PO (20:08)
[2021-03-13] MEDS ORDERED: PENI500T PO (20:08)
--- NOTE | 2021-03-13 20:09 | ED EENT ---
History of Present Illness General Chief Complaint: Dental Problems/Pain Stated Complaint: TOOTH/LEFT EYE PAIN Nursing Triage Note: PT IN PER POV WITH C/O PAIN GOING UP INTO HIS LEFT EYE. RECENTLY ON ANTIBIOTICS PRIOR TO TOOTH PULLED ON January. FILLINGS X2 WKS AGO. ORIGEL X1 HR AGO 4 IBUPROFEN AND 2 TYLENOL. Source: patient History of Present Illness Date Seen by Provider: Mar 13, 2021 Time Seen by Provider: 19:30 Initial Comments Patient is a 30-year-old male who presents with left anterior bicuspid pain radiating to his left maxillary sinus. Patient has been on antibiotic in the past month and had affected tooth filled and adjacent tooth pulled by his dentist 1 month ago. He has used Orajel and ibuprofen and 2 Tylenol with limited relief. No other symptoms or complaints. Timing/Duration: gradual Severity: moderate Location: facial, dental Prearrival Treatment: other Associated Symptoms: denies symptoms, other Allergies and Home Medications Allergies Coded Allergies: No Known Drug Allergies (Unverified , 12/14/17) Home Medications No Active Prescriptions or Reported Meds Patient Home Medication List Home Medication List Reviewed: Yes Review of Systems Review of Systems Constitutional: see HPI Eyes: See HPI Ears: See HPI Nose: see HPI Mouth: see HPI Throat: see HPI Respiratory: see HPI Cardiovascular: see HPI Past Cfrjksx-Vnjbak-Cjfego Hx Patient Social History Tobacco Use?: No Smoking Status: Unknown if Ever Smoked Smokeless Tobacco Frequency: Unknown if Ever Used Use of E-Cig and/or Vaping Denzel: Unknown if Ever Used Substance use?: No Alcohol Use?: No Pt feels they are or have been: No Immunizations Up To Date PED Vaccines UTD: Yes Seasonal Allergies Seasonal Allergies: No Past Medical History Surgeries: Yes (R 5TH FINGER FRACTURE RECONSTRUCTION/FX R LEG HAS LILLIANA, WISDOM TEETH) Orthopedic Respiratory: No Cardiac: No Neurological: No Genitourinary: No Gastrointestinal: No Musculoskeletal: Yes (FINGER FRACTURE, LEG FX) Fractures Endocrine: No HEENT: No Cancer: No Psychosocial: No Integumentary: No Blood Disorders: No Family Medical History Diabetes mellitus PA GRANDFATHER No Pertinent Family Hx Physical Exam Vital Signs Vital Signs - First Documented 03/13/21 19:20 Temp 36.1 Pulse 52 Resp 16 B/P (MAP) 132/93 (106) Pulse Ox 100 O2 Delivery Room Air Height, Weight, BMI Height: 5'10.00" Weight: 158lbs. 6.0oz. 71.570069cg; 25.00 BMI Method:Stated General Appearance: moderate distress Eyes: bilateral eye normal inspection, bilateral eye PERRL, bilateral eye EOMI Ears: bilateral ear auricle normal, bilateral ear canal normal, bilateral ear TM normal Nose: active bleeding Mouth/Throat: dental tenderness (Left anterior bicuspid, widespread decay no dysphonia dysphagia or drooling. No gingivae abscesses.) Neck: full range of motion, supple Progress/Results/Core Measures Results/Orders Vital Signs/I&O 03/13/21 19:20 Temp 36.1 Pulse 52 Resp 16 B/P (MAP) 132/93 (106) Pulse Ox 100 O2 Delivery Room Air Blood Pressure Mean: 106 Departure Communication (Admissions) Antibiotics and pain medication given. We will continue supportive care with instructions to follow-up with dentist of choice JENNIFER Impression Primary Impression: Pain due to dental caries Disposition: HOME, SELF-CARE Condition: Stable Departure-Patient Inst. Decision time for Depature: 20:06 Referrals: ANNA SNYDER MD (PCP/Family) Primary Care Physician Patient Instructions: Dental Pain ED Add. Discharge Instructions: Please take ibuprofen for pain and newly prescribed medications as directed. Follow-up with your PCP in 2 to 3 days for reevaluation. Return to the ED if new or worsening symptoms. All discharge instructions reviewed with patient and/or family. Voiced understanding. Scripts Hydrocodone/Acetaminophen (Hydrocodone-Acetamin 5-325 mg) 1 Each Tablet 1 TAB PO Q4H PRN for PAIN-MODERATE (5-7), #7 TAB Prov: PAUL BROWN DO 03/13/21 Penicillin V Potassium (Penicillin V Potassium) 500 Mg Tablet 500 MG PO QID, #40 TAB Prov: PAUL BROWN DO 03/13/21 PAUL BROWN DO Mar 13, 2021 20:09
[2021-03-13] MEDS ORDERED: HYDROcodone/APAP 5 MG/325 MG (LORTAB) TAB PO ONE (20:15)
== END 2021-03-13 20:12 | disposition home or self-care (01) ==
LOC: EDUNIT# 19:03 → ER FS 19:05
DX: K02.9 Dental caries, unspecified (principal)
CPT/HCPCS: 99283

== ENCOUNTER 2021-04-16 20:36 | Emergency (ER) | payer MEDICAID ==
[~2021-04-16] VITALS: Ht 177.8 cm; Wt 76.2 kg
[~2021-04-16 20:36] MED LIST changes: +ACHD5005 PO; +PENI500T PO
[2021-04-16 20:54] LABS: BACTERIA,URINE NEGATIVE /HPF; BILIRUBIN,URINE NEGATIVE (NEGATIVE); CLARITY,URINE CLEAR; COLOR,URINE YELLOW; GLUCOSE, URINE (UA) NEGATIVE (NEGATIVE); KETONES,URINE NEGATIVE (NEGATIVE); LEUKOCYTE ESTERASE ,URINE NEGATIVE (NEGATIVE); NITRITE,URINE NEGATIVE (NEGATIVE); PH,URINE 6.5 (5-9); PROTEIN,URINE NEGATIVE (NEGATIVE); WBC,URINE RARE /HPF
[2021-04-16 21:02] LABS: AMPHETAMINE SCREEN, URINE POSITIVE (NEGATIVE); BARBITURATE SCREEN URINE NEGATIVE (NEGATIVE); BENZODIAZEPINES SCREEN URINE NEGATIVE (NEGATIVE); CANNABINOID SCREEN, URINE NEGATIVE (NEGATIVE); COCAINE SCREEN URINE NEGATIVE (NEGATIVE); METHADONE STAT NEGATIVE (NEGATIVE); METHAMPHETAMINE SCREEN URINE S POSITIVE (NEGATIVE); OPIATE SCREEN URINE NEGATIVE (NEGATIVE); OXYCODONE STAT NEGATIVE (NEGATIVE); PROPOXYPHENE STAT NEGATIVE (NEGATIVE); TRICYCLIC ANTIDEPRESSANTS SCRE NEGATIVE (NEGATIVE)
[2021-04-16 21:03] LABS: BASOPHILS % (AUTO) 1 % (0-10); EOSINOPHILS % (AUTO) 4 % (0-10); HEMATOCRIT 43 % (40-54); HEMOGLOBIN 14.7 g/dL (13.3-17.7); LYMPHOCYTES % (AUTO) 28 % (12-44); MEAN CORPUSCULAR HEMOGLOBIN 30 pg (25-34); MEAN CORPUSCULAR HGB CONC 35 g/dL (32-36); MEAN CORPUSCULAR VOLUME 87 fL (80-99); MEAN PLATELET VOLUME 10.8 fL (9.0-12.2); MONOCYTES % (AUTO) 13 % (0-12); NEUTROPHILS # (AUTO) 3.4 X 10^3 (1.8-7.8); NEUTROPHILS % (AUTO) 54 % (42-75); PLATELET COUNT 238 10^3/uL (130-400); WHITE BLOOD COUNT 6.2 10^3/uL (4.3-11.0)
[2021-04-16 21:04] LABS: EOSINOPHILS # (AUTO) 0.2 10^3/uL (0.0-0.3); LYMPHOCYTES # (AUTO) 1.7 X 10^3 (1.0-4.0); MONOCYTES # (AUTO) 0.8 X 10^3 (0.0-1.0)
[2021-04-16 21:21] LABS: BUN/CREATININE RATIO 9; CALCIUM 9.6 MG/DL (8.5-10.1); CARBON DIOXIDE 26 MMOL/L (21-32); CHLORIDE 102 MMOL/L (98-107); GFR ESTIMATED 78; GLUCOSE 104 MG/DL (70-105); POTASSIUM 4.2 MMOL/L (3.6-5.0); SODIUM 138 MMOL/L (135-145)
[2021-04-16 21:22] LABS: ACETAMINOPHEN < 10 UG/ML (10-30); ALANINE AMINOTRANSFERASE 10 U/L (0-55); ALBUMIN 4.9 GM/DL (3.2-4.5); ALKALINE PHOSPHATASE 55 U/L (40-136); BILIRUBIN,TOTAL 0.9 MG/DL (0.1-1.0); SALICYLATE < 0.3 MG/DL (5.0-20.0); TOTAL PROTEIN 7.5 GM/DL (6.4-8.2)
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
[2021-04-16 22:08] VITALS: BP 154/89
== END 2021-04-16 22:08 | disposition home or self-care (01) ==
LOC: EDUNIT# 20:36 → ER FS 20:38
DX: F43.22 Adjustment disorder with anxiety (principal); F15.10 Other stimulant abuse, uncomplicated
CPT/HCPCS: 36415; 80053; 80306; 80320; 80329; 81000; 85025

== ENCOUNTER 2021-05-20 11:23 | Emergency (ER) | payer MEDICAID ==
[~2021-05-20] VITALS: Ht 177.8 cm; Wt 79.0 kg
[2021-05-20] MEDS ORDERED: IBUPROFEN 600 MG (MOTRIN) TAB PO ONE (11:45)
--- NOTE | 2021-05-20 11:47 | ED Upper Extremity ---
General Chief Complaint: Upper Extremity Stated Complaint: RT WRIST PAIN Source: patient Exam Limitations: no limitations History of Present Illness Date Seen by Provider: May 20, 2021 Time Seen by Provider: 11:29 Initial Comments 30-year-old male with no significant past medical history coming in due to 1 month of right wrist pain that is intermittent, worse with activity, and better with rest and somewhat better with ibuprofen. 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 He uses his hand a lot. Never had pain like this before. Trialed a splint on his wrist for a while and it did not fit well and did not make it feel better. He is otherwise denying any fever, trauma, or any other concerns. Allergies and Home Medications Allergies Coded Allergies: No Known Drug Allergies (Unverified , 12/14/17) Patient Home Medication List Home Medication List Reviewed: Yes Hydrocodone/Acetaminophen (Hydrocodone-Acetamin 5-325 mg) 1 Each Tablet, 1 TAB PO Q4H PRN for PAIN-MODERATE (5-7) Prescribed by: PAUL BROWN on 03/13/212008 Penicillin V Potassium (Penicillin V Potassium) 500 Mg Tablet, 500 MG PO QID Prescribed by: PAUL BROWN on 03/13/212007 Review of Systems Constitutional: No chills, No fever EENTM: no symptoms reported Respiratory: no symptoms reported Cardiovascular: no symptoms reported Gastrointestinal: no symptoms reported Genitourinary: no symptoms reported Musculoskeletal: muscle pain Skin: no symptoms reported Psychiatric/Neurological: No Symptoms Reported All Other Systems Reviewed Negative Unless Noted: Yes Past Jhosshz-Oacqaf-Lngivd Hx Patient Social History Tobacco Use?: No Immunizations Up To Date PED Vaccines UTD: Yes Seasonal Allergies Seasonal Allergies: No Past Medical History Surgeries: Yes (R 5TH FINGER FRACTURE RECONSTRUCTION/FX R LEG HAS LILLIANA, WISDOM TEETH) Orthopedic Respiratory: No Cardiac: No Neurological: No Genitourinary: No Gastrointestinal: No Musculoskeletal: Yes (FINGER FRACTURE, LEG FX) Fractures Endocrine: No HEENT: No Cancer: No Psychosocial: No Integumentary: No Blood Disorders: No Family Medical History Diabetes mellitus PA GRANDFATHER No Pertinent Family Hx Physical Exam Vital Signs Capillary Refill : Height, Weight, BMI Height: 5'10.00" Weight: 158lbs. 6.0oz. 71.897489hi; 24.00 BMI Method:Stated General Appearance: WD/WN, no apparent distress HEENT: PERRL/EOMI, normal ENT inspection, pharynx normal Neck: non-tender, full range of motion, supple, normal inspection Cardiovascular: regular rate, rhythm, no edema, no murmur Respiratory: chest non-tender, lungs clear, normal breath sounds, no respiratory distress, no accessory muscle use Gastrointestinal: normal bowel sounds, non tender, soft; No distended, No guarding, No rebound Back: normal inspection Shoulder: normal inspection, non-tender, no evidence of injury, normal ROM Elbow/Forearm: normal inspection, non-tender, no evidence of injury, normal ROM Wrist: Yes normal inspection, Yes normal ROM, Yes soft tissue tenderness (pain along radial wrist with a positive Ashish's test, skin is not red with no swelling, full range of motion of joint) Hand: normal inspection, non-tender (no scaphoid tenderness), no evidence of injury Neurologic/Tendon: normal sensation, normal motor functions Neurologic/Psychiatric: no motor/sensory deficits, alert, normal mood/affect Skin: normal color, warm/dry Lymphatic: no adenopathy Progress/Results/Core Measures Results/Orders My Orders Orders - MIRLANDE MAYES MD Wrist 3 View Right (05/20/21 11:40) Ibuprofen Tablet (Motrin Tablet) (05/20/21 11:45) Medications Given in ED Current Medications Medications Dose Ordered Sig/Tyler Route Start Time Stop Time Status Last Admin Dose Admin Ibuprofen 600 mg ONCE ONCE PO 05/20/21 11:45 05/20/21 11:46 DC 05/20/21 11:47 600 MG Progress Progress Note : Progress Note 30-year-old male with above history coming into right wrist pain. Tender along the radial aspect of the wrist with a positive Ashish's and clinically he has de Quervain's tenosynovitis. He has not had any trauma and has no scaphoid tenderness specifically. X-ray ordered and interpreted by me showing no acute abnormality including no fracture. Recommend NSAIDs, ice, splint, and follow-up with orthopedics for potential injection. He was then discharged home in stable condition with strict return precautions Diagnostic Imaging Diagonstic Imaging: Xray Plain Films/CT/US/NM/MRI: other (right wrist) Comments X-ray right wrist ordered and interpreted by me showing no fracture or malalignment Departure Impression Primary Impression: De Quervain's tenosynovitis, right Disposition: 01 HOME, SELF-CARE Condition: Stable Departure-Patient Inst. Decision time for Depature: 12:00 Referrals: GUILLERMINA CAZARES Patient Instructions: de Quervain Tendinopathy Add. Discharge Instructions: He was seen in the emergency department for right wrist pain. This is called de Quervain's tenosynovitis. Take 600 mg of ibuprofen every 6 hours as well as icing it. Try to use the splint as much as you can to give it rest. Follow-up with an orthopedic doctor of your choosing (there is a nurse practicioner in [place] named Kamran Norbert that could see you) so they potentially can do a steroid injection. The treatment is steroid injection and physical therapy often. If you have any fever or significant redness or swelling in the area then please come back to the ER. All discharge instructions reviewed with patient and/or family. Voiced understanding. MIRLANDE MAYES MD May 20, 2021 11:47
--- NOTE | 2021-05-20 12:05 | Diagnostic Imaging Report ---
INDICATION: Wrist pain COMPARISON: None available. TECHNIQUE: 3 radiographs of the right wrist dated 05/20/2021. FINDINGS: No acute fracture or dislocation. No destructive osseous process. Carpal alignment is well-maintained. No suspicious radiopaque foreign body. IMPRESSION: No acute osseous abnormality. Dictated by: Dictated on workstation # [id number]
[2021-05-20 12:10] VITALS: BP 129/91
== END 2021-05-20 12:10 | disposition home or self-care (01) ==
LOC: EDUNIT# 11:23 → ER FS 11:24
DX: M65.4 Radial styloid tenosynovitis [de Quervain] (principal)
CPT/HCPCS: 73110

== ENCOUNTER 2021-06-06 10:46 | Emergency (ER) | payer MEDICAID ==
[~2021-06-06] VITALS: Ht 177.8 cm; Wt 81.0 kg
--- NOTE | 2021-06-06 10:58 | ED GI ---
General Chief Complaint: Abdominal/GI Problems Stated Complaint: BLOODY STOOL History of Present Illness Date Seen by Provider: Jun 06, 2021 Time Seen by Provider: 10:52 Initial Comments 30-year-old male presents with "blood in his stool" patient reports that he had a bloody stool this morning. He has only had 1. He denies any constipation or hard stool. Patient reports that he is been recently treated for bronchitis with steroids and then a Z-Donis. Patient was seen in urgent care yesterday when they start him on a Z-Donis. Patient was seen about 6 7 days ago from when I started him on steroid. Patient was negative for influenza and coronavirus a week ago. Patient denies abdominal pain nausea or vomiting. Allergies and Home Medications Allergies Coded Allergies: No Known Drug Allergies (Unverified , 12/14/17) Patient Home Medication List Home Medication List Reviewed: Yes Hydrocodone/Acetaminophen (Hydrocodone-Acetamin 5-325 mg) 1 Each Tablet, 1 TAB PO Q4H PRN for PAIN-MODERATE (5-7) Prescribed by: PAUL BROWN on 03/13/212008 Penicillin V Potassium (Penicillin V Potassium) 500 Mg Tablet, 500 MG PO QID Prescribed by: PAUL BROWN on 03/13/212007 Review of Systems Review of Systems Constitutional: No chills, No fever Respiratory: Cough, Shortness of Air Cardiovascular: Denies Chest Pain Gastrointestinal: Denies Abdominal Pain, Denies Nausea; Rectal Bleeding; Denies Vomiting Skin: no symptoms reported Psychiatric/Neurological: No Symptoms Reported Endocrine: No Symptoms Reported Past Ocnzmuq-Edocly-Axlxei Hx Immunizations Up To Date PED Vaccines UTD: Yes First/Initial COVID19 Vaccinat: Not Currently Vacinated Seasonal Allergies Seasonal Allergies: No Past Medical History Surgeries: Yes (R 5TH FINGER FRACTURE RECONSTRUCTION/FX R LEG HAS LILLIANA, WISDOM TEETH) Orthopedic Respiratory: No Cardiac: No Neurological: No Genitourinary: No Gastrointestinal: No Musculoskeletal: Yes (FINGER FRACTURE, LEG FX) Fractures Endocrine: No HEENT: No Cancer: No Psychosocial: No Integumentary: No Blood Disorders: No Family Medical History Diabetes mellitus PA GRANDFATHER No Pertinent Family Hx Physical Exam Vital Signs Vital Signs - First Documented 06/06/21 11:02 Temp 36.1 Pulse 59 Resp 16 B/P (MAP) 147/99 (115) Pulse Ox 99 O2 Delivery Room Air Capillary Refill : Height/Weight/BMI Height: 5'10.00" Weight: 158lbs. 6.0oz. 71.129751zp; 24.00 BMI Method:Stated General Appearance: WD/WN, no apparent distress HEENT: PERRL/EOMI Neck: full range of motion, supple Respiratory: chest non-tender, lungs clear, normal breath sounds, no respiratory distress, no accessory muscle use Cardiovascular: normal peripheral pulses, regular rate, rhythm, no edema Gastrointestinal: non tender, soft Rectal: normal rectal tone, heme positive stool, hemorrhoids; No mass, No tenderness Extremities: normal range of motion, normal inspection, normal capillary refill Back: no CVA tenderness Neurologic/Psychiatric: no motor/sensory deficits, alert, normal mood/affect, oriented x 3 Skin: normal color, warm/dry Progress/Results/Core Measures Results/Orders Lab Results Laboratory Tests Test 06/06/21 11:10 Range/Units White Blood Count 8.5 4.3-11.0 10^3/uL Red Blood Count 4.87 4.30-5.52 10^6/uL Hemoglobin 14.6 13.3-17.7 g/dL Hematocrit 43 40-54 % Mean Corpuscular Volume 88 80-99 fL Mean Corpuscular Hemoglobin 30 25-34 pg Mean Corpuscular Hemoglobin Concent 34 32-36 g/dL Red Cell Distribution Width 12.2 10.0-14.5 % Platelet Count 239 130-400 10^3/uL Mean Platelet Volume 10.7 9.0-12.2 fL Immature Granulocyte % (Auto) 1 % Neutrophils (%) (Auto) 57 42-75 % Lymphocytes (%) (Auto) 27 12-44 % Monocytes (%) (Auto) 13 H 0-12 % Eosinophils (%) (Auto) 3 0-10 % Basophils (%) (Auto) 0 0-10 % Neutrophils # (Auto) 4.8 1.8-7.8 X 10^3 Lymphocytes # (Auto) 2.3 1.0-4.0 X 10^3 Monocytes # (Auto) 1.1 H 0.0-1.0 X 10^3 Eosinophils # (Auto) 0.2 0.0-0.3 10^3/uL Basophils # (Auto) 0.0 0.0-0.1 10^3/uL Immature Granulocyte # (Auto) 0.0 0.0-0.1 10^3/uL Prothrombin Time 14.1 12.2-14.7 SEC INR Comment 1.0 0.8-1.4 Activated Partial Thromboplast Time 25 24-35 SEC Sodium Level 142 135-145 MMOL/L Potassium Level 3.3 L 3.6-5.0 MMOL/L Chloride Level 101 98-107 MMOL/L Carbon Dioxide Level 30 21-32 MMOL/L Anion Gap 11 5-14 MMOL/L Blood Urea Nitrogen 15 7-18 MG/DL Creatinine 0.98 0.60-1.30 MG/DL Estimat Glomerular Filtration Rate 89 BUN/Creatinine Ratio 15 Glucose Level 99 70-105 MG/DL Calcium Level 9.6 8.5-10.1 MG/DL Corrected Calcium 8.5-10.1 MG/DL Magnesium Level 2.3 1.6-2.4 MG/DL Total Bilirubin 0.4 0.1-1.0 MG/DL Aspartate Amino Transf (AST/SGOT) 18 5-34 U/L Alanine Aminotransferase (ALT/SGPT) 16 0-55 U/L Alkaline Phosphatase 56 40-136 U/L Total Protein 7.8 6.4-8.2 GM/DL Albumin 4.9 H 3.2-4.5 GM/DL My Orders Orders - TELLEZ,MICHAEL L DO Cbc With Automated Diff (06/06/21 11:02) Comprehensive Metabolic Panel (06/06/21 11:02) Magnesium (06/06/21 11:02) Protime With Inr (06/06/21 11:02) Partial Thromboplastin Time (06/06/21 11:02) Crp Fs (06/06/21 11:02) Abdomen (Kub) 1 View (06/06/21 11:02) Chest Pa/Lat (2 View) (06/06/21 11:02) Ed Iv/Invasive Line Start (06/06/21 11:02) Vital Signs/I&O 06/06/21 11:02 Temp 36.1 Pulse 59 Resp 16 B/P (MAP) 147/99 (115) Pulse Ox 99 O2 Delivery Room Air Progress Progress Note : Progress Note Patient with negative chest x-ray, abdominal x-ray and normal labs. Patient's rectal exam shows no gross rectal bleeding. He does have a mild hemorrhoid which could have been part of the bleeding versus other rectal irritation. Discussed with him that he will need to follow-up with his primary care provider and general surgeon for further outpatient management and arrange a probable colonoscopy. Patient stable and discharged Departure Impression Primary Impression: Rectal bleeding Additional Impression: Chest congestion Disposition: 01 HOME, SELF-CARE Condition: Stable Departure-Patient Inst. Referrals: IVA CORONA JOHN M MD (PCP/Family) Primary Care Physician Patient Instructions: Bloody Stools, Adult (DC), Gastrointestinal Bleeding (DC) Add. Discharge Instructions: Please call Dr. Corona's office or your primary care provider for follow-up of your symptoms and further outpatient management and treatment as indicated All discharge instructions reviewed with patient and/or family. Voiced understanding. MICHAEL TELLEZ DO Jun 06, 2021 10:58
[2021-06-06 11:24] LABS: BASOPHILS % (AUTO) 0 % (0-10); EOSINOPHILS # (AUTO) 0.2 10^3/uL (0.0-0.3); EOSINOPHILS % (AUTO) 3 % (0-10); HEMATOCRIT 43 % (40-54); HEMOGLOBIN 14.6 g/dL (13.3-17.7); LYMPHOCYTES # (AUTO) 2.3 X 10^3 (1.0-4.0); LYMPHOCYTES % (AUTO) 27 % (12-44); MEAN CORPUSCULAR HEMOGLOBIN 30 pg (25-34); MEAN CORPUSCULAR HGB CONC 34 g/dL (32-36); MEAN CORPUSCULAR VOLUME 88 fL (80-99); MEAN PLATELET VOLUME 10.7 fL (9.0-12.2); MONOCYTES # (AUTO) 1.1 X 10^3 (0.0-1.0); MONOCYTES % (AUTO) 13 % (0-12); NEUTROPHILS # (AUTO) 4.8 X 10^3 (1.8-7.8); NEUTROPHILS % (AUTO) 57 % (42-75); PLATELET COUNT 239 10^3/uL (130-400); WHITE BLOOD COUNT 8.5 10^3/uL (4.3-11.0)
--- NOTE | 2021-06-06 11:27 | Diagnostic Imaging Report ---
PA and lateral chest at 1115 hours. INDICATION: Cough, shortness of breath. COMPARISON: 12/14/2017. FINDINGS: The heart size is stable when compared to the prior exam. The lungs are clear. There is no evidence for failure, pneumonia or for a pleural effusion. The mediastinum is not widened. The osseous structures are intact. IMPRESSION: There is no evidence for active disease. Dictated by: Dictated on workstation # [id number]
[2021-06-06 11:35] LABS: CARBON DIOXIDE 30 MMOL/L (21-32); CHLORIDE 101 MMOL/L (98-107); POTASSIUM 3.3 MMOL/L (3.6-5.0); SODIUM 142 MMOL/L (135-145)
[2021-06-06 11:36] LABS: ALANINE AMINOTRANSFERASE 16 U/L (0-55); ALBUMIN 4.9 GM/DL (3.2-4.5); ALKALINE PHOSPHATASE 56 U/L (40-136); BILIRUBIN,TOTAL 0.4 MG/DL (0.1-1.0); BUN/CREATININE RATIO 15; CALCIUM 9.6 MG/DL (8.5-10.1); CREATININE SERUM 0.98 MG/DL (0.60-1.30); GFR ESTIMATED 89; GLUCOSE 99 MG/DL (70-105); MAGNESIUM 2.3 MG/DL (1.6-2.4); TOTAL PROTEIN 7.8 GM/DL (6.4-8.2)
--- NOTE | 2021-06-06 11:39 | Diagnostic Imaging Report ---
INDICATION: Rectal bleeding. FINDINGS: KUB. Stomach and small bowel are not distended. Colon shows normal stool and gas pattern. No evidence of constipation. There is no organomegaly. No pathologic calcification. No bony abnormalities. IMPRESSION: Normal KUB. Dictated by: Dictated on workstation # [id number]
[2021-06-06 11:44] LABS: PROTHROMBIN TIME PATIENT 14.1 SEC (12.2-14.7)
[2021-06-06 12:01] VITALS: BP 147/99
== END 2021-06-06 11:56 | disposition home or self-care (01) ==
LOC: EDUNIT# 10:46 → ER FS 10:48
DX: K62.5 Hemorrhage of anus and rectum (principal); R09.89 Other specified symptoms and signs involving the circulatory and respiratory systems
CPT/HCPCS: 36415; 71046; 74018; 80053; 83735; 85025; 85610; 85730; 86141

== ENCOUNTER 2021-06-22 17:28 | Emergency (ER) | payer MEDICAID ==
[2021-06-22] MEDS ORDERED: VALA10007 PO (17:52)
--- NOTE | 2021-06-22 17:52 | ED GU-Male ---
General Chief Complaint: - Reproductive Stated Complaint: RED PAINFUL BUMPS ON GROIN Nursing Triage Note: Patient presents to the ED with c/o cluster of blisters on the head of the penis. He reports that his was recently diagnosed with herpes and that he has tested negative with a blood test. He states that he had a similar outbreak in October. Source: patient History of Present Illness Date Seen by Provider: Jun 22, 2021 Time Seen by Provider: 17:31 Initial Comments 30-year-old male presenting with blisters and sores on the side of his penis. He reports he had something similar in October. His had a similar rash and was swabbed and diagnosed with herpes. However he never took any of the medicine to try and prevent outbreak. He had a blood test done with Dr. Stringer and was told that he did not have herpes. 2 days ago he started having recurrent rash and blisters on the side of his penis. He presented to the ED today to be evaluated for possible herpes or what the rash might be. Also to get treatment if it was herpes. He denies any pain with urination and has had no discharge. He denies any fever or chills. He has no other sores other than on the side of his penis. Severity/Quality: mild Location: other (Right side of his penis shaft) Activities at Onset: none Prior Genitourinary Problems: similar symptoms (Similar rash in October) Sexual [place] History: less than 2 months ago, single partner Associated Symptoms: No abdominal pain, No diaphoresis, No dysuria, No fever/chills, No loss of bladder control, No lower back pain, No lumps, No mass, No nausea/vomiting, No nocturia, No polyuria, No swelling, No syncope, No urinary frequency Allergies and Home Medications Allergies Coded Allergies: No Known Drug Allergies (Unverified , 12/14/17) Patient Home Medication List Home Medication List Reviewed: Yes Hydrocodone/Acetaminophen (Hydrocodone-Acetamin 5-325 mg) 1 Each Tablet, 1 TAB PO Q4H PRN for PAIN-MODERATE (5-7) Prescribed by: PAUL BROWN on 03/13/212008 Penicillin V Potassium (Penicillin V Potassium) 500 Mg Tablet, 500 MG PO QID Prescribed by: PAUL BROWN on 03/13/212007 Valacyclovir HCl (Valacyclovir) 1,000 Mg Tablet, 1,000 MG PO BID Prescribed by: FABIEN TAM on 06/22/21 5048 Review of Systems Review of Systems Constitutional: No chills, No fever EENTM: no symptoms reported Respiratory: no symptoms reported Cardiovascular: no symptoms reported Gastrointestinal: no symptoms reported Genitourinary: see HPI Musculoskeletal: no symptoms reported Skin: see HPI Psychiatric/Neurological: No Symptoms Reported Past Hhmdpik-Shjsqt-Xsgzqk Hx Patient Social History Tobacco Use?: No Use of E-Cig and/or Vaping dev: No Substance use?: No Alcohol Use?: No Pt feels they are or have been: No Immunizations Up To Date PED Vaccines UTD: Yes First/Initial COVID19 Vaccinat: Not Currently Vacinated Second COVID19 Vaccination Severino: Not Currently Vacinated Third COVID19 Vaccination Date: Not Currently Vacinated Seasonal Allergies Seasonal Allergies: No Past Medical History Surgeries: Yes (R 5TH FINGER FRACTURE RECONSTRUCTION/FX R LEG HAS LILLIANA, WISDOM TEETH) Orthopedic Respiratory: No Cardiac: No Neurological: No Genitourinary: No Gastrointestinal: No Musculoskeletal: Yes (FINGER FRACTURE, LEG FX) Fractures Endocrine: No HEENT: No Cancer: No Psychosocial: No Integumentary: No Blood Disorders: No Family Medical History Diabetes mellitus PA GRANDFATHER No Pertinent Family Hx Physical Exam Vital Signs Vital Signs - First Documented 06/22/21 17:37 Temp 36.7 Pulse 105 Resp 16 B/P (MAP) 182/88 (119) Pulse Ox 97 O2 Delivery Room Air Capillary Refill : Less Than 3 Seconds Height, Weight, BMI Height: 5'10.00" Weight: 158lbs. 6.0oz. 71.086586bi; 25.00 BMI Method:Stated General Appearance: WD/WN, no apparent distress Male: normal genitalia, other (On the right side of the shaft of his penis he has several small vesicles with some mild erythema) Neurologic/Psychiatric: alert, oriented x 3 Skin: warm/dry Progress/Results/Core Measures Suspected Sepsis SIRS Temperature: Pulse: 105 Respiratory Rate: 16 Blood Pressure 182 /88 Mean: 119 Results/Orders My Orders Orders - FABIEN TAM MD Herpes Simplex Culture (06/22/21 17:45) Vital Signs/I&O 06/22/21 06/22/21 17:37 17:54 Temp 36.7 36.7 Pulse 105 105 Resp 16 16 B/P (MAP) 182/88 (119) 182/88 Pulse Ox 97 97 O2 Delivery Room Air Room Air Capillary Refill : Less Than 3 Seconds Blood Pressure Mean: 119 Progress Note : Progress Note The right shaft of his penis was cleaned with an alcohol prep pad. Then using a 25-gauge needle the fluid-filled vesicles were unroofed to obtain a fluid specimen for viral culture. Will treat with valacyclovir Valtrex 1000 mg twice a day for 7 days as a initial outbreak treatment. Advised patient that in the future if he had future outbreaks he could do a shorter course of treatment is usually 3 to 5 days. Counseled to follow-up with the clinic. Advised that the viral culture results to take an extended period of time. In the meantime no intercourse or sex with anyone while he has an outbreak. Advised to inform any of his partners of the outbreak and infection. Departure Impression Primary Impression: Vesicular rash Additional Impression: Infection, penis, herpetic Disposition: 01 HOME, SELF-CARE Condition: Stable Departure-Patient Inst. Decision time for Depature: 17:49 Referrals: ANNA STRINGER MD (PCP/Family) Primary Care Physician Patient Instructions: Genital Herpes (DC), Sexually Transmitted Diseases ED Add. Discharge Instructions: Take the full course of medicine for viral infection to treat for Herpes. The viral culture from the fluid collected today will take usually a week or more to come back with results and they will call you once it is complete. No intercourse while you have an outbreak and inform any sexual partners of the infection. All discharge instructions reviewed with patient and/or family. Voiced understanding. Scripts Valacyclovir HCl (Valacyclovir) 1,000 Mg Tablet 1000 MG PO BID for Rash for 7 Days, #14 TAB 0 Refills Prov: FABIEN TAM MD 06/22/21 FABIEN TAM MD Jun 22, 2021 17:52
[2021-06-22 17:54] VITALS: BP 182/88
== END 2021-06-22 17:53 | disposition home or self-care (01) ==
LOC: EDUNIT# 17:28 → ER FS 17:30
DX: R21 Rash and other nonspecific skin eruption (principal); N48.29 Other inflammatory disorders of penis
CPT/HCPCS: 87254; 99283

== ENCOUNTER 2021-07-24 10:41 | Emergency (ER) | payer MEDICAID ==
[~2021-07-24] VITALS: Ht 177 cm; Wt 85.0 kg
[~2021-07-24 10:41] MED LIST changes: +VALA10007 PO
--- NOTE | 2021-07-24 10:45 | ED General ---
General Stated Complaint: HEAD INJ W/ LOC History of Present Illness Date Seen by Provider: Jul 24, 2021 Time Seen by Provider: 10:44 Initial Comments Patient presenting to emergency department for evaluation of a head injury sustained shortly prior to arrival as he was loading lives with one of them fell on his left parietal region and he thinks he may have lost consciousness briefly. He says he does have a headache but no neck pain chest abdomen back or other extremity pain and no vision changes unilateral weakness numbness or tingling. They think his last tetanus may have been over 10 years ago. He is in no acute distress with normal vital signs. Allergies and Home Medications Allergies Coded Allergies: No Known Drug Allergies (Unverified , 12/14/17) Patient Home Medication List Home Medication List Reviewed: Yes Hydrocodone/Acetaminophen (Hydrocodone-Acetamin 5-325 mg) 1 Each Tablet, 1 TAB PO Q4H PRN for PAIN-MODERATE (5-7) Prescribed by: PAUL BROWN on 03/13/212008 Hydrocodone/Acetaminophen (Hydrocodone-Acetamin 5-325 mg) 1 Each Tablet, 1 TAB PO Q4H PRN for PAIN-MODERATE (5-7) Prescribed by: JAYLIN DORAN on 07/24/21 112 Ondansetron (Ondansetron Odt) 4 Mg Tab.rapdis, 4 MG PO Q6H PRN for NAUSEA/VOMITING Prescribed by: JAYLIN DORAN on 07/24/21 112 Penicillin V Potassium (Penicillin V Potassium) 500 Mg Tablet, 500 MG PO QID Prescribed by: PAUL BROWN on 03/13/212007 Valacyclovir HCl (Valacyclovir) 1,000 Mg Tablet, 1,000 MG PO BID Prescribed by: FABIEN TAM on 06/22/211751 Review of Systems Review of Systems Constitutional: no symptoms reported EENTM: no symptoms reported Respiratory: no symptoms reported Cardiovascular: no symptoms reported Gastrointestinal: no symptoms reported Musculoskeletal: no symptoms reported Skin: no symptoms reported Psychiatric/Neurological: Headache All Other Systems Reviewed Negative Unless Noted: Yes Past Xarxhau-Weqgxa-Meojyw Hx Immunizations Up To Date PED Vaccines UTD: Yes First/Initial COVID19 Vaccinat: Not Currently Vacinated Second COVID19 Vaccination Severino: Not Currently Vacinated Third COVID19 Vaccination Date: Not Currently Vacinated Seasonal Allergies Seasonal Allergies: No Past Medical History Surgeries: Yes (R 5TH FINGER FRACTURE RECONSTRUCTION/FX R LEG HAS LILLIANA, WISDOM TEETH) Orthopedic Respiratory: No Cardiac: No Neurological: No Genitourinary: No Gastrointestinal: No Musculoskeletal: Yes (FINGER FRACTURE, LEG FX) Fractures Endocrine: No HEENT: No Cancer: No Psychosocial: No Integumentary: No Blood Disorders: No Family Medical History Diabetes mellitus PA GRANDFATHER No Pertinent Family Hx Physical Exam Vital Signs Vital Signs - First Documented 07/24/21 11:22 Temp 36.6 Pulse 63 Resp 18 B/P (MAP) 144/70 (94) Pulse Ox 99 O2 Delivery Room Air Capillary Refill : Height, Weight, BMI Height: 5'10.00" Weight: 158lbs. 6.0oz. 71.356852ke; 25.00 BMI Method:Stated General Appearance: No Apparent Distress, WD/WN HEENT: PERRL/EOMI Neck: Non Tender, Supple Respiratory: Lungs Clear, No Respiratory Distress Cardiovascular: Regular Rate, Rhythm Extremity: Normal Capillary Refill Neurologic/Psychiatric: Alert, Oriented x3 Skin: Warm/Dry, Other (V shaped laceration to L parietal scalp. Appx 5cm in total length. ) Procedures/Interventions Wound Location: Scalp Wound Length (cm): 5 Wound's Depth, Shape: irregular, contused tissue, sub Q Wound Explored: no foreign body removed Irrigated w/ Saline (ccs): 300 Betadine Prep?: Yes Anesthesia: Lidocaine w/ Epi Volume Anesthetic (ccs): 5 Wound Debrided: minimal Staple Repair: Stapler 35W Suture: Prolene (4-0) Number of Sutures: 8 Layer Closure?: 1 Progress Wound prepped and draped in normal sterile fashion and approximately 5 cc of 1% lidocaine with epinephrine was used to anesthetize the wound and the wound was scrubbed with Hibiclens and irrigated copiously with saline. Three 4-0 Prolene sutures were used to approximate the apex of the V shape and then 5 additional sarah beth were used to close the laceration. No complications noted. Progress/Results/Core Measures Suspected Sepsis SIRS Temperature: Pulse: Respiratory Rate: Blood Pressure / Mean: Results/Orders My Orders Orders - JAYLIN DORAN DO Dipht,Kristi(Acell),Tet Adult (Boostrix (07/24/21 11:00) Ct Head Wo (07/24/21 10:53) Lidocaine/Epi 2% 1:100,000 (Xylocaine/Ep (07/24/21 11:00) Medications Given in ED Current Medications Medications Dose Ordered Sig/Tyler Route Start Time Stop Time Status Last Admin Dose Admin Diphtheria/ Tetanus/Acell Pertussis 0.5 ml ONCE ONCE IM 07/24/21 11:00 07/24/21 11:01 DC 07/24/21 11:04 0.5 ML Lidocaine/ Epinephrine 10 ml ONCE ONCE INJ 07/24/21 11:00 07/24/21 11:01 DC 07/24/21 11:12 10 ML Vital Signs/I&O 07/24/21 11:22 Temp 36.6 Pulse 63 Resp 18 B/P (MAP) 144/70 (94) Pulse Ox 99 O2 Delivery Room Air Capillary Refill : Progress Note : Progress Note CT is negative for acute process and patient has a normal neurologic exam. Patient told he will likely have concussion symptoms and I will prescribe him supportive medications. I told him to follow-up with a primary care provider this week to ensure improvement and come back to emergency department sooner with worsening pain fevers vomiting or other concerns. Patient aware and agreeable with plan and verbalized understanding of the above instructions. Departure Impression Primary Impression: Laceration of scalp Qualified Codes: S01.01XA - Laceration without foreign body of scalp, initial encounter Additional Impression: CHI (closed head injury) Qualified Codes: S09.90XA - Unspecified injury of head, initial encounter Disposition: HOME, SELF-CARE Condition: Stable Departure-Patient Inst. Referrals: ANNA SNYDER MD (PCP/Family) Primary Care Physician Patient Instructions: Laceration Repair With [place] (DC), Concussion, Adult (DC) Add. Discharge Instructions: Tylenol and Ibuprofen for pain. Franklin for breakthrough pain. Sutures out in 10 days. Come back with any concerns. Thank you! Scripts Hydrocodone/Acetaminophen (Hydrocodone-Acetamin 5-325 mg) 1 Each Tablet 1 TAB PO Q4H PRN for PAIN-MODERATE (5-7), #8 TAB Prov: JAYLIN DORAN DO 07/24/21 Ondansetron (Ondansetron Odt) 4 Mg Tab.rapdis 4 MG PO Q6H PRN for NAUSEA/VOMITING, #8 TAB 0 Refills Prov: JAYLIN DORAN DO 07/24/21 JAYLIN DORAN DO Jul 24, 2021 10:45
[2021-07-24] MEDS ORDERED: TETANUS,DIPTH,PERTUSS P/F (BOOSTRIX) 0.5 ML VIAL IM ONE (11:00)
[2021-07-24] MEDS ORDERED: LIDOCAINE/EPI 2% 1:100,00 (XYLOCAINE) 20 ML VIAL INJ ONE (11:00)
--- NOTE | 2021-07-24 11:07 | Diagnostic Imaging Report ---
PROCEDURE: CT head without contrast. TECHNIQUE: Multiple contiguous axial images were obtained through the brain without the use of intravenous contrast. Auto Exposure Controls were utilized during the CT exam to meet ALARA standards for radiation dose reduction. INDICATION: Head injury with loss of consciousness, fall. COMPARISON: No prior studies are available for comparison. FINDINGS: The ventricles and sulci are within normal limits. No sulcal effacement or midline shift is identified. No acute intra-axial or extra-axial hemorrhage is detected. The cisterns are patent. The visualized paranasal sinuses are clear. IMPRESSION: No acute intracranial process is detected. Dictated by: Dictated on workstation # [id number]
[2021-07-24 11:22] VITALS: BP 144/70
[2021-07-24] MEDS ORDERED: ONDA4TAB11 PO (11:22)
[2021-07-24] MEDS ORDERED: ACHD5005 PO (11:22)
== END 2021-07-24 11:25 | disposition home or self-care (01) ==
LOC: EDUNIT# 10:41 → ER FS 10:43
DX: S09.90XA Unspecified injury of head, initial encounter (principal); S01.01XA Laceration without foreign body of scalp, initial encounter; Z23 Encounter for immunization; W20.8XXA Other cause of strike by thrown, projected or falling object, initial encounter
CPT/HCPCS: 12042; 70450; 90715

== ENCOUNTER 2021-09-03 03:19 | Emergency (ER) | payer MEDICAID ==
[~2021-09-03] VITALS: Ht 177.8 cm; Wt 81.3 kg
[~2021-09-03 03:19] MED LIST changes: +ONDA4TAB11 PO
[2021-09-03 03:25] VITALS: BP 141/81
[2021-09-03] MEDS ORDERED: ACETAMINOPHEN 500 MG TAB (TYLENOL) PO STA (03:33)
[2021-09-03] MEDS ORDERED: KETOROLAC 60 MG/2 ML VIAL IM STA (03:33)
--- NOTE | 2021-09-03 03:44 | ED General ---
General Chief Complaint: Fever-Adult/Adol Stated Complaint: FEVER;HEADACHE;BODY CHILLS Nursing Triage Note: Patient states that he woke up around midnight with a fever. Patient denies having a cough, sore throat, runny nose or body aches. Patient did not take Ibuprofen or Tylenol. Source of Information: Patient History of Present Illness Date Seen by Provider: Sep 03, 2021 Time Seen by Provider: 03:21 Initial Comments 30-year-old male presenting with complaints of suddenly waking up with fever, body aches, headache. He states that he is not usually sick so when he woke up he decided to drive here to the emergency department. He has not taken any medication to try and help with fever with headache. He has had no nausea, vomiting, cough, shortness of breath, runny nose, sore throat, chest pains. He denies having any exposure to ill contacts. He was playing with his kids during the day prior to them returning to their mom. He states that his son did have a stomachache but it improved after he had a bowel movement once he got home to his mother's. Timing/Duration: 1-3 Hours Severity: Moderate Associated Systoms: No Chest Pain, No Cough, No Diaphoresis; Fever/Chills, Headaches; No Loss of Appetite, No Malaise, No Nausea/Vomiting, No Rash, No Seizure, No Shortness of Air, No Syncope, No Weakness Allergies and Home Medications Allergies Coded Allergies: No Known Drug Allergies (Unverified , 12/14/17) Patient Home Medication List Home Medication List Reviewed: Yes Hydrocodone/Acetaminophen (Hydrocodone-Acetamin 5-325 mg) 1 Each Tablet, 1 TAB P O Q4H PRN for PAIN-MODERATE (5-7) Prescribed by: PAUL BROWN on 03/13/212008 Hydrocodone/Acetaminophen (Hydrocodone-Acetamin 5-325 mg) 1 Each Tablet, 1 TAB PO Q4H PRN for PAIN-MODERATE (5-7) Prescribed by: JAYLIN DORAN on 07/24/211121 Ondansetron (Ondansetron Odt) 4 Mg Tab.rapdis, 4 MG PO Q6H PRN for NAUSEA/VOMI TING Prescribed by: JAYLIN DORAN on 07/24/211121 Penicillin V Potassium (Penicillin V Potassium) 500 Mg Tablet, 500 MG PO QID Prescribed by: PAUL BROWN on 03/13/212007 Valacyclovir HCl (Valacyclovir) 1,000 Mg Tablet, 1,000 MG PO BID Prescribed by: FABIEN TAM on 06/22/211751 Review of Systems Review of Systems Constitutional: chills; No dizziness; fever EENTM: No ear pain, No eye pain, No epistaxis, No nose congestion Respiratory: No cough, No short of breath Cardiovascular: No chest pain Gastrointestinal: No nausea, No vomiting Genitourinary: No dysuria Musculoskeletal: muscle pain (Generalized muscle and body aches) Skin: No rash Psychiatric/Neurological: Headache (Generalized headache) Past Uh[place]-Pciuvi-Npuiom Hx Patient Social History Tobacco Use?: No Substance use?: No Alcohol Use?: No Pt feels they are or have been: No Immunizations Up To Date PED Vaccines UTD: Yes First/Initial COVID19 Vaccinat: Not Currently Vacinated Second COVID19 Vaccination Severino: Not Currently Vacinated Third COVID19 Vaccination Date: Not Currently Vacinated Seasonal Allergies Seasonal Allergies: No Past Medical History Surgeries: Yes (R 5TH FINGER FRACTURE RECONSTRUCTION/FX R LEG HAS LILLIANA, WISDOM TEETH) Orthopedic Respiratory: No Cardiac: No Neurological: No Genitourinary: No Gastrointestinal: No Musculoskeletal: Yes (FINGER FRACTURE, LEG FX) Fractures Endocrine: No HEENT: No Cancer: No Psychosocial: No Integumentary: No Blood Disorders: No Family Medical History Diabetes mellitus PA GRANDFATHER No Pertinent Family Hx Physical Exam Vital Signs Vital Signs - First Documented 09/03/21 03:25 Temp 38.1 Pulse 90 Resp 18 B/P (MAP) 141/81 (101) Pulse Ox 94 O2 Delivery Room Air Capillary Refill : Less Than 3 Seconds Height, Weight, BMI Height: 5'10.00" Weight: 158lbs. 6.0oz. 71.193378wu; 25.00 BMI Method:Stated General Appearance: WD/WN, Anxious HEENT: PERRL/EOMI, Moist Mucous Membranes, Pharyngeal Erythema; No Photophobia, No Tonsillar Exudate, No Tonsillar Enlargement Neck: Full Range of Motion, Normal Inspection, Non Tender, Supple Respiratory: Chest Non Tender, Lungs Clear, Normal Breath Sounds, No Accessory Muscle Use, No Respiratory Distress Cardiovascular: Regular Rate, Rhythm, Normal Peripheral Pulses Gastrointestinal: Normal Bowel Sounds, No Pulsatile Mass, Non Tender, Soft Rectal: Deferred Extremity: Normal Capillary Refill, Normal Inspection, No Pedal Edema Neurologic/Psychiatric: Alert, Oriented x3, credit and collection manager II-XII Norm as Tested Skin: Normal Color, Warm/Dry Progress/Results/Core Measures Suspected Sepsis SIRS Temperature: Pulse: 90 Respiratory Rate: 18 Blood Pressure 141 /81 Mean: 101 Results/Orders Lab Results Laboratory Tests Test 09/03/21 03:32 Range/Units Influenza Type A Antigen NEGATIVE NEGATIVE Influenza Type B Antigen NEGATIVE NEGATIVE My Orders Orders - FABIEN TAM MD Influenza A & B Antigens (09/03/21 03:32) Covid 19 Inhouse Test (09/03/21 03:32) Isolation Central Supply Req (09/03/21 03:32) Acetaminophen Tablet (Tylenol Tablet) (09/03/21 03:33) Ketorolac Injection (Toradol Injection) (09/03/21 03:33) Vital Signs/I&O 09/03/21 03:25 Temp 38.1 Pulse 90 Resp 18 B/P (MAP) 141/81 (101) Pulse Ox 94 O2 Delivery Room Air Capillary Refill : Less Than 3 Seconds Blood Pressure Mean: 101 Progress Note #1: Progress Note Patient's oxygen level is okay and his lungs were clear. Since he was complaining of fever and headache with body aches with sudden onset when he woke up this morning will obtain a influenza and COVID swab. Advised the patient that the COVID swab from here was not a rapid test and it would take a day or 2 to get back. The influenza swab will be back tonight. For his headache and body aches we will give acetaminophen and a dose of Toradol. Encourage fluids here in the ED. Progress Note #2: Progress Note Influenza was negative. Will discharge patient home to continue symptomatic treatment and quarantine until COVID results are known Departure Impression Primary Impression: Person under investigation for severe acute respiratory syndrome coronavirus 2 (SARS-CoV-2) infection Additional Impressions: Fever in adult Generalized headache Disposition: 01 HOME, SELF-CARE Condition: Stable Departure-Patient Inst. Decision time for Depature: 04:17 Referrals: ANNA SNYDER MD (PCP/Family) Primary Care Physician Patient Instructions: COVID-19 Tests, Fever, Adult ED, COVID-19 ED, Headache, Adult ED Add. Discharge Instructions: Stay well-hydrated and drink plenty of fluids. Continue with acetaminophen and ibuprofen as needed for fever and headaches. Continue to treat your symptoms and check back through the clinic for continued concerns. Quarantine for the next 10 days or until you are fever free for 24 hours without having to take medication. Once the COVID results is back if it is positive you will be called and notified of the result All discharge instructions reviewed with patient and/or family. Voiced understanding. Work/School Note: Work Release Form Date Seen in the Emergency Department: Sep 03, 2021 Return to Work: Sep 13, 2021 Restrictions: Return-No Fever (24hrs) Other Restrictions Listed Below: Quarantine for 10 days and no Fever for 24 hours without meds FABIEN TAM MD Sep 03, 2021 03:44
== END 2021-09-03 04:20 | disposition home or self-care (01) ==
LOC: EDUNIT# 03:19 → ER FS 03:21
DX: U07.1 COVID-19 (principal)
CPT/HCPCS: 87636; 87804; 96372; 99284

== ENCOUNTER 2021-12-07 19:13 | Emergency (ER) | payer MEDICAID ==
--- NOTE | 2021-12-07 19:26 | ED EENT ---
History of Present Illness General Chief Complaint: Dental Problems/Pain Stated Complaint: FACIAL PAIN,THROAT PAIN Source: patient Exam Limitations: no limitations History of Present Illness Date Seen by Provider: Dec 07, 2021 Time Seen by Provider: 19:22 Initial Comments Patient is a 31-year-old male who presents with right maxillary pain rating to eye and right ear after getting a right upper posterior molar pulled 4 days ago. Patient's been taking ibuprofen with limited relief. No other symptoms or complaints Timing/Duration: gradual Severity: moderate Location: facial, dental Prearrival Treatment: other Modifying Factors: Improves With Other Associated Symptoms: other Allergies and Home Medications Allergies Coded Allergies: No Known Drug Allergies (Unverified , 12/14/17) Patient Home Medication List Home Medication List Reviewed: Yes Hydrocodone/Acetaminophen (Hydrocodone-Acetamin 5-325 mg) 1 Each Tablet, 1 TAB PO Q4H PRN for PAIN-MODERATE (5-7) Prescribed by: PAUL BROWN on 03/13/212008 Hydrocodone/Acetaminophen (Hydrocodone-Acetamin 5-325 mg) 1 Each Tablet, 1 TAB PO Q4H PRN for PAIN-MODERATE (5-7) Prescribed by: JAYLIN DORAN on 07/24/21 112 Ondansetron (Ondansetron Odt) 4 Mg Tab.rapdis, 4 MG PO Q6H PRN for NAUSEA/VOMITING Prescribed by: JAYLIN DORAN on 07/24/21 112 Penicillin V Potassium (Penicillin V Potassium) 500 Mg Tablet, 500 MG PO QID Prescribed by: PAUL BROWN on 03/13/212007 Valacyclovir HCl (Valacyclovir) 1,000 Mg Tablet, 1,000 MG PO BID Prescribed by: FBAIEN TAM on 06/22/211751 Review of Systems Review of Systems Constitutional: see HPI Skin: see HPI Past Cnmuepj-Psgkor-Owkhjo Hx Patient Social History Tobacco Use?: Yes Use of E-Cig and/or Vaping dev: No Substance use?: No Alcohol Use?: No Pt feels they are or have been: No Immunizations Up To Date PED Vaccines UTD: Yes First/Initial COVID19 Vaccinat: Not Currently Vacinated Second COVID19 Vaccination Severino: Not Currently Vacinated Third COVID19 Vaccination Date: Not Currently Vacinated Seasonal Allergies Seasonal Allergies: No Past Medical History Surgeries: Yes (R 5TH FINGER FRACTURE RECONSTRUCTION/FX R LEG HAS LILLIANA, WISDOM TEETH) Orthopedic Respiratory: No Cardiac: No Neurological: No Genitourinary: No Gastrointestinal: No Musculoskeletal: Yes (FINGER FRACTURE, LEG FX) Fractures Endocrine: No HEENT: No Cancer: No Psychosocial: No Integumentary: No Blood Disorders: No Family Medical History Diabetes mellitus PA GRANDFATHER No Pertinent Family Hx Physical Exam Height, Weight, BMI Height: 5'10.00" Weight: 158lbs. 6.0oz. [id number]; 25.00 BMI Method:Stated General Appearance: WD/WN, no apparent distress Eyes: bilateral eye normal inspection, bilateral eye PERRL, bilateral eye EOMI Ears: bilateral ear auricle normal, bilateral ear canal normal Nose: normal inspection Mouth/Throat: other (Right upper posterior molar alveolar socket) Gastrointestinal: non tender, soft Departure Communication (Admissions) Will place on antibiotics and pain medication with instruction to follow-up with dentist tomorrow. Impression Primary Impression: Pain, dental Disposition: HOME, SELF-CARE Condition: Stable Departure-Patient Inst. Decision time for Depature: 19:25 Referrals: ANNA SNYDER MD (PCP/Family) Primary Care Physician Patient Instructions: Acute Pain, Adult (DC) Add. Discharge Instructions: Please continue ibuprofen for pain and feel prescriptions provided upon leaving the emergency department. Contact dentist tomorrow to schedule reexamination. All discharge instructions reviewed with patient and/or family. Voiced understanding. Scripts Penicillin V Potassium (Penicillin V Potassium) 500 Mg Tablet 500 MG PO QID, #40 TAB Prov: PAUL BROWN DO 12/07/21 Tramadol HCl (Tramadol HCl) 50 Mg Tablet 50 MG PO Q6H PRN for PAIN for 3 Days, #10 TAB 0 Refills Prov: PAUL BROWN DO 12/07/21 PAUL BROWN DO Dec 07, 2021 19:26
[2021-12-07] MEDS ORDERED: PENI500T PO (19:27)
[2021-12-07] MEDS ORDERED: TRM50T PO (19:27)
[2021-12-07 19:28] VITALS: BP 162/98
== END 2021-12-07 19:29 | disposition home or self-care (01) ==
LOC: EDUNIT# 19:13 → ER FS 19:14
DX: K08.89 Other specified disorders of teeth and supporting structures (principal)
CPT/HCPCS: 99281

== ENCOUNTER 2022-03-09 10:05 | Emergency (ER) | payer MEDICAID ==
[~2022-03-09] VITALS: Ht 177 cm; Wt 84.0 kg
[~2022-03-09 10:05] MED LIST changes: +TRM50T PO
[2022-03-09] MEDS ORDERED: VALA10007 PO (10:33)
--- NOTE | 2022-03-09 10:33 | ED GU-Male ---
General Chief Complaint: - Reproductive Stated Complaint: PENILE RASH/BLISTERS Nursing Triage Note: PT REPORTS HE HAS A "RASH" ON HIS PENIS. Source: patient Exam Limitations: no limitations History of Present Illness Date Seen by Provider: Mar 09, 2022 Time Seen by Provider: 10:22 Initial Comments 31-year-old male patient complaining of blister lesion in his penis since yesterday without pain, itching, fever and chills, malaise, urinary symptom, sick contacts. Patient states his last sexual activity was several weeks ago. Patient states he had 2 other episodes of the same problem with the last one in June but did not have special diagnosis. According to EMR patient had positive herpes simplex virus type II culture on June 22, 2021 but patient is states he is not aware of diagnosis of general herpes. Allergies and Home Medications Allergies Coded Allergies: No Known Drug Allergies (Unverified , 12/14/17) Patient Home Medication List Home Medication List Reviewed: Yes Hydrocodone/Acetaminophen (Hydrocodone-Acetamin 5-325 mg) 1 Each Tablet, 1 TAB PO Q4H PRN for PAIN-MODERATE (5-7) Prescribed by: PAUL BROWN on 03/13/212008 Hydrocodone/Acetaminophen (Hydrocodone-Acetamin 5-325 mg) 1 Each Tablet, 1 TAB PO Q4H PRN for PAIN-MODERATE (5-7) Prescribed by: JAYLIN DORAN on 07/24/211121 Ondansetron (Ondansetron Odt) 4 Mg Tab.rapdis, 4 MG PO Q6H PRN for NAUSEA/VOMITING Prescribed by: JAYLIN DORAN on 07/24/211121 Penicillin V Potassium (Penicillin V Potassium) 500 Mg Tablet, 500 MG PO QID Prescribed by: PAUL BROWN on 03/13/212007 Penicillin V Potassium (Penicillin V Potassium) 500 Mg Tablet, 500 MG PO QID Prescribed by: PAUL BROWN on 12/07/211926 Tramadol HCl (Tramadol HCl) 50 Mg Tablet, 50 MG PO Q6H PRN for PAIN Prescribed by: PAUL BROWN on 12/07/211926 Valacyclovir HCl (Valacyclovir) 1,000 Mg Tablet, 1,000 MG PO BID Prescribed by: FABIEN TAM on 06/22/211751 Valacyclovir HCl (Valacyclovir) 1,000 Mg Tablet, 1,000 MG PO BID Prescribed by: Argenis roberts on 03/09/22 1033 Review of Systems Review of Systems Constitutional: no symptoms reported EENTM: no symptoms reported Respiratory: no symptoms reported Cardiovascular: no symptoms reported Gastrointestinal: no symptoms reported Genitourinary: see HPI Musculoskeletal: no symptoms reported Skin: no symptoms reported Psychiatric/Neurological: No Symptoms Reported Endocrine: No Symptoms Reported All Other Systemes Reviewed Negative Unless Noted: Yes Past Clvlnqd-Ulvvqv-Lomzhv Hx Patient Social History Tobacco Use?: No Use of E-Cig and/or Vaping dev: No Substance use?: No Alcohol Use?: No Pt feels they are or have been: No Immunizations Up To Date PED Vaccines UTD: Yes First/Initial COVID19 Vaccinat: Not Currently Vacinated Second COVID19 Vaccination Severino: Not Currently Vacinated Third COVID19 Vaccination Date: Not Currently Vacinated Seasonal Allergies Seasonal Allergies: No Past Medical History Surgeries: Yes (R 5TH FINGER FRACTURE RECONSTRUCTION/FX R LEG HAS LILLIANA, WISDOM TEETH) Orthopedic Respiratory: No Cardiac: No Neurological: No Genitourinary: No Gastrointestinal: No Musculoskeletal: Yes (FINGER FRACTURE, LEG FX) Fractures Endocrine: No HEENT: No Cancer: No Psychosocial: No Integumentary: No Blood Disorders: No Family Medical History Diabetes mellitus PA GRANDFATHER No Pertinent Family Hx Physical Exam Vital Signs Vital Signs - First Documented 03/09/22 10:18 Temp 37.2 Pulse 68 Resp 16 B/P (MAP) 142/85 (104) Pulse Ox 95 O2 Delivery Room Air Capillary Refill : Less Than 3 Seconds Height, Weight, BMI Height: 5'10.00" Weight: 158lbs. 6.0oz. 71.160286qa; 26.00 BMI Method:Stated General Appearance: WD/WN, no apparent distress HEENT: PERRL/EOMI, normal ENT inspection Neck: non-tender, full range of motion, supple Cardiovascular: regular rate, rhythm, no edema, no gallop, no JVD, no murmur Respiratory: chest non-tender, lungs clear, normal breath sounds, no respiratory distress, no accessory muscle use Gastrointestinal: non tender, soft Male: other (Genital inspection in front of allergist/pediatric pulmonologist showed left penile shaft blisters lesion without sign of secondary infection, left inguinal small adenopathy was noted.) Back: normal inspection Extremities: normal range of motion Neurologic/Psychiatric: no motor/sensory deficits, alert Skin: normal color Progress/Results/Core Measures Suspected Sepsis SIRS Temperature: Pulse: 68 Respiratory Rate: 16 Blood Pressure 142 /85 Mean: 104 Results/Orders Vital Signs/I&O 03/09/22 03/09/22 10:18 10:34 Temp 37.2 37.2 Pulse 68 68 Resp 16 16 B/P (MAP) 142/85 (104) 142/85 Pulse Ox 95 95 O2 Delivery Room Air Room Air Capillary Refill : Less Than 3 Seconds Blood Pressure Mean: 104 Progress Note : Progress Note Evaluation of patient in ER showed 31-year-old male patient with complaining of blister lesion of his penis since yesterday with history of 2 other episodes of the same problem previously. Patient had recorded positive culture of genital herpes simplex virus type II in June 22, 2011 but patient was not aware of diagnosis of herpes. Patient advised for using precaution for STD disease and prescription for valacyclovir 1000 mg twice daily x7 days was given and advised to follow-up with his primary care physician for preventive treatment of herpes genital. Departure Impression Primary Impression: Recurrent genital herpes simplex type 2 infection Disposition: 01 HOME, SELF-CARE Condition: Stable Departure-Patient Inst. Decision time for Depature: 10:31 Referrals: ANNA SNYDER MD (PCP) Primary Care Physician Patient Instructions: Genital Herpes (DC), STD Prevention, Sexually Transmitted Diseases ED Add. Discharge Instructions: Follow-up with your primary care physician for preventive treatment of herpes zoster Return to ER as needed All discharge instructions reviewed with patient and/or family. Voiced understanding. Scripts Valacyclovir HCl (Valacyclovir) 1,000 Mg Tablet 1000 MG PO BID, #14 TAB Prov: ARGENIS ROBERTS MD 03/09/22 ARGENIS ROBERTS MD Mar 09, 2022 10:33
[2022-03-09 10:34] VITALS: BP 142/85
== END 2022-03-09 10:36 | disposition home or self-care (01) ==
LOC: EDUNIT# 10:05 → ER FS 10:06
DX: A60.00 Herpesviral infection of urogenital system, unspecified (principal); Z28.310 Unvaccinated for COVID-19
CPT/HCPCS: 99282

== ENCOUNTER 2022-05-01 05:30 | Emergency (ER) | payer MEDICAID ==
--- NOTE | 2022-05-01 05:41 | ED Cough/URI ---
General Chief Complaint: Fever-Adult/Adol Stated Complaint: SORE THROAT, CHEST/HEAD CONGESTION Source: patient History of Present Illness Date Seen by Provider: May 01, 2022 Time Seen by Provider: 05:37 Initial Comments 31-year-old male presenting with complaints of cough, nasal congestion, sore throat, fever since yesterday. He felt like he was getting worse overnight. He was seen in urgent care yesterday and had a swab for strep and COVID that were reported negative. He last took ibuprofen 3 hours prior to arrival in the ED. He is still out of low-grade temperature here in the emergency department. He stated that he was having trouble sleeping because of the fevers cough and congestion. He had taken some [place] cold with sinus medicine prior to bed. He has had no definite ill contacts. He denies being a smoker or using tobacco. He also denies having a history of asthma or breathing problems in the past. Timing/Duration: yesterday Severity/Quality: moderate, dry cough Prior Episodes/Possible Cause: no prior episodes Modifying Factors: Worse With Activity, Worse With Lying Down Associated Symptoms: chest pain/soreness, cough, fever/chills, headache, lightheadedness, muscle aches, nasal congestion, nasal drainage, shortness of breath, sore throat Allergies and Home Medications Allergies Coded Allergies: No Known Drug Allergies (Unverified , 12/14/17) Patient Home Medication List Home Medication List Reviewed: Yes Azithromycin (Azithromycin) 500 Mg Tablet, 500 MG PO DAILY Prescribed by: FABIEN TAM on 05/01/22 0616 Valacyclovir HCl (Valacyclovir) 1,000 Mg Tablet, 1,000 MG PO BID Prescribed by: Argenis bardales on 03/09/22 1033 Discontinued Medications Hydrocodone/Acetaminophen (Hydrocodone-Acetamin 5-325 mg) 1 Each Tablet, 1 TAB PO Q4H PRN for PAIN-MODERATE (5-7) Prescribed by: PAUL BROWN on 03/13/212008 Hydrocodone/Acetaminophen (Hydrocodone-Acetamin 5-325 mg) 1 Each Tablet, 1 TAB PO Q4H PRN for PAIN-MODERATE (5-7) Prescribed by: JAYLIN DORAN on 07/24/21 1122 Ondansetron (Ondansetron Odt) 4 Mg Tab.rapdis, 4 MG PO Q6H PRN for NAUSEA/VOMITING Prescribed by: JAYLIN DORAN on 07/24/21 112 Penicillin V Potassium (Penicillin V Potassium) 500 Mg Tablet, 500 MG PO QID Prescribed by: PAUL BROWN on 03/13/212007 Penicillin V Potassium (Penicillin V Potassium) 500 Mg Tablet, 500 MG PO QID Prescribed by: PAUL BROWN on 12/07/211926 Tramadol HCl (Tramadol HCl) 50 Mg Tablet, 50 MG PO Q6H PRN for PAIN Prescribed by: PAUL BROWN on 12/07/211926 Valacyclovir HCl (Valacyclovir) 1,000 Mg Tablet, 1,000 MG PO BID Prescribed by: FABIEN TAM on 06/22/211751 Review of Systems Review of Systems Constitutional: see HPI, chills, fever, malaise EENTM: nose congestion, throat pain; No ear discharge, No ear pain Respiratory: cough, short of breath; No stridor, No wheezing Cardiovascular: no symptoms reported Gastrointestinal: nausea; No vomiting Genitourinary: no symptoms reported Musculoskeletal: other (Generalized body aches) Skin: no symptoms reported Psychiatric/Neurological: Anxiety, Headache Hematologic/Lymphatic: Denies Blood Clots Past Kfgjuju-Oqygbb-Pyyomj Hx Patient Social History Tobacco Use?: No Use of E-Cig and/or Vaping dev: No Substance use?: No Alcohol Use?: No Pt feels they are or have been: No Immunizations Up To Date PED Vaccines UTD: Yes First/Initial COVID19 Vaccinat: Not Currently Vacinated Second COVID19 Vaccination Severino: Not Currently Vacinated Third COVID19 Vaccination Date: Not Currently Vacinated Seasonal Allergies Seasonal Allergies: No Past Medical History Surgeries: Yes (R 5TH FINGER FRACTURE RECONSTRUCTION/FX R LEG HAS LILLIANA, WISDOM TEETH) Orthopedic Respiratory: No Cardiac: No Neurological: No Genitourinary: No Gastrointestinal: No Musculoskeletal: Yes (FINGER FRACTURE, LEG FX) Fractures Endocrine: No HEENT: No Cancer: No Psychosocial: No Integumentary: No Blood Disorders: No Family Medical History Diabetes mellitus PA GRANDFATHER No Pertinent Family Hx Physical Exam Vital Signs - First Documented 05/01/22 05:35 Temp 38.0 Pulse 99 Resp 18 B/P (MAP) 163/76 (105) Pulse Ox 95 O2 Delivery Room Air Capillary Refill : Height: 5'10.00" Weight: 158lbs. 6.0oz. 71.437124xk; 26.00 BMI Method:Stated General Appearance: WD/WN, no apparent distress HEENT: PERRL/EOMI, TMs normal; No photophobia; pharyngeal erythema; No tonsillar exudate; other (Nasal congestion and sinus pressure.) Neck: full range of motion, supple, lymphadenopathy (R), lymphadenopathy (L), tender lateral ( tenderness lateral neck muscles, neck with shotty anterior cervical chain lymphadenopathy) Respiratory: lungs clear, normal breath sounds, no respiratory distress, no accessory muscle use Cardiovascular: normal peripheral pulses, regular rate, rhythm Gastrointestinal: normal bowel sounds, non tender, soft, no pulsatile mass Extremities: normal range of motion, non-tender, normal capillary refill 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, alert, oriented x 3 Skin: warm/dry Progress/Results/Core Measures Suspected Sepsis SIRS Temperature: Pulse: Respiratory Rate: Blood Pressure / Mean: Results/Orders My Orders Orders - FABIEN TAM MD Chest Pa/Lat (2 View) (05/01/22 05:49) Acetaminophen Tablet (Tylenol Tablet) (05/01/22 05:49) Azithromycin Tablet (Zithromax Tablet) (05/01/22 06:16) Vital Signs/I&O 05/01/22 05/01/22 05:35 06:19 Temp 38.0 38.0 Pulse 99 99 Resp 18 18 B/P (MAP) 163/76 (105) 163/76 Pulse Ox 95 95 O2 Delivery Room Air Room Air Capillary Refill : Progress Note #1: Progress Note Since he was just swabbed for strep and COVID yesterday will defer repeating that. Obtain a chest x-ray to look for signs of pneumonia or pulmonary infiltrate. Acetaminophen for his mild elevation of his temperature. Progress Note #2: Time: 06:10 Progress Note On my review of 2 views of chest he has increased perihilar lung markings but also appears to have start of infiltrate in right lower lobe. Will treat with Azithromycin and encourage him to stay home while he has a fever. Push fluids and rest. Consider using Mucinex or over the counter Robitussin to help with his cough and congestion. Diagnostic Imaging Diagonstic Imaging: Xray Plain Films/CT/US/NM/MRI: chest Comments On my review of 2 views of chest he has increased perihilar lung markings but also appears to have start of infiltrate in right lower lobe. Reviewed: Reviewed by Me Departure Impression Primary Impression: Upper respiratory infection with cough and congestion Additional Impressions: Fever Qualified Codes: R50.81 - Fever presenting with conditions classified elsewhere Acute viral syndrome Pneumonia of right lower lobe due to infectious organism Disposition: HOME, SELF-CARE Condition: Stable Departure-Patient Inst. Decision time for Depature: 06:13 Referrals: ANNA SNYDER MD (PCP/Family) Primary Care Physician Patient Instructions: Upper Respiratory Infection ED, Fever, Adult ED, Cough, Adult ED, Pneumonia, Adult ED Add. Discharge Instructions: Stay well-hydrated and drink plenty of fluids. Continue with acetaminophen and ibuprofen as needed to help control fever and body aches. Consider using Mucinex or plain Robitussin [id number] to help with loosening your cough and congestion. Take the full course of antibiotics to treat for lung infection. Check back with your primary provider if having continued concerns or not improving. All discharge instructions reviewed with patient and/or family. Voiced understanding. Scripts Azithromycin (Azithromycin) 500 Mg Tablet 500 MG PO DAILY for Pneumonia for 5 Days, #4 TAB 0 Refills Prov: FABIEN TAM MD 05/01/22 Work/School Note: Work Release Form Date Seen in the Emergency Department: May 01, 2022 Return to Work: May 03, 2022 Restrictions: Return-No Fever (24hrs) FABIEN TAM MD May 01, 2022 05:41
[2022-05-01] MEDS ORDERED: ACETAMINOPHEN 500 MG TAB (TYLENOL) PO STA (05:49)
[2022-05-01] MEDS ORDERED: AZITHROMYCIN 250 MG TAB (ZITHROMAX) PO STA (06:16)
[2022-05-01] MEDS ORDERED: AZIT500T9 PO (06:16)
[2022-05-01 06:19] VITALS: BP 163/76
--- NOTE | 2022-05-01 06:27 | Diagnostic Imaging Report ---
CLINICAL INDICATION: Patient states that he is congested. EXAM: Chest x-ray PA and lateral views. COMPARISON: Chest x-ray dated 06/06/2021. FINDINGS: Lungs/pleura: Lungs are clear. There is no pneumothorax. There is no pleural effusion. Mediastinum: Unremarkable. Pulmonary vasculature: Unremarkable. Heart: Unremarkable. Bones/extrathoracic soft tissue: Unremarkable. IMPRESSION: There is no radiographic evidence of acute cardiopulmonary process. Dictated by: Dictated on workstation # [id number]
== END 2022-05-01 06:23 | disposition home or self-care (01) ==
LOC: EDUNIT# 05:30 → ER FS 05:33
DX: J06.9 Acute upper respiratory infection, unspecified (principal); J18.1 Lobar pneumonia, unspecified organism; Z28.310 Unvaccinated for COVID-19
CPT/HCPCS: 71046